=== PATIENT | female | born 1940 | race Hispanic/Latino ===

== ENCOUNTER 2016-10-30 13:02 | Inpatient (IN) | payer MEDICARE, MEDICAID ==
[2016-07-24 13:43] VITALS: BMI 32.5
[2016-10-31] MEDS ORDERED: Albuterol 0.083% Inhal Sol (2.5 mg/3 mL) UD IH PRN (00:22)
--- NOTE | 2016-10-31 00:31 | CP.PCM.HP ---
<Paulo No - Last Filed: 10/31/16 02:08> History of Present Illness - History of Present Illness History of Present Illness: 76 y/o F with PMH of HTN, IDDM, COPD, CHF, HLD, and CAD with recent stent placement 6 months ago and hx of CABG presents to ED from longterm for 1 day history of severe headache accompanied by nausea and vomiting. Pt states she has had a severe left sided headache for the past day. Pain in head does not radiate and she does not complain of any acute visual changes. Pt received tylenol for headache, but states it did not help. Pt was very restless throughout interview and was not able to answer all questions, as she was more concerned about her frequent urination. Much of prior history provided is from previous notes. Pt denies any recent illnesses or sick contacts. Pt denies CP, SOB, N/V/D, fevers, chills. PMH: HTN, IDDM, COPD, CHF, and CAD with recent stent placement Surgical Hx: Cardiac stent placement, Lumbar fusion, Hysterectomy, right toe amputation Family Hx: DM, [place] Social Hx: Former smoker, quit 15 years ago. Denies alcohol or illicit drug use. Allergies: Shellfish Medications: See MAR Present on Admission - Present on Admission Any Indicators Present on Admission: No Review of Systems - Constitutional Constitutional: Fatigue, Weakness. absent: Fever - EENT Eyes: absent: Blurred Vision, Change in Vision Nose/Mouth/Throat: absent: Nasal Congestion, Nasal Discharge - Cardiovascular Cardiovascular: absent: Chest Pain, Irregular Heart Rhythm - Respiratory Respiratory: absent: Cough, Dyspnea - Gastrointestinal Gastrointestinal: absent: Abdominal Pain, Diarrhea, Vomiting - Genitourinary Genitourinary: Urinary Incontinence, Urinary Frequency. absent: Dysuria - Integumentary Integumentary: absent: New Lesions, Rash - Neurological Neurological: absent: Syncope, Tingling - Hematologic/Lymphatic Hematologic: absent: Easy Bleeding, Easy Bruising Past Patient History - Infectious Disease Hx of Infectious Diseases: None - Past Medical History & Family History Past Medical History?: Yes - Past Social History Smoking Status: Former Smoker - CARDIAC Hx Cardiac Disorders: Yes Hx Congestive Heart Failure: Yes Hx Hypercholesterolemia: Yes Hx Hypertension: Yes - PULMONARY Hx Respiratory Disorders: Yes Hx Asthma: Yes Hx Chronic Obstructive Pulmonary Disease (COPD): Yes - NEUROLOGICAL Hx Neurological Disorder: Yes Hx Dizziness: Yes - HEENT Hx HEENT Problems: Yes (Wears glasses) Hx Deafness: Yes ([place]: has hearing aids) - RENAL Hx Chronic Kidney Disease: No - ENDOCRINE/METABOLIC Hx Endocrine Disorders: Yes Hx Diabetes Mellitus Type 2: Yes - HEMATOLOGICAL/ONCOLOGICAL Hx Blood Disorders: No - INTEGUMENTARY Hx Dermatological Problems: Yes Hx Cellulitis: Yes (Since June 2016) - MUSCULOSKELETAL/RHEUMATOLOGICAL Hx Musculoskeletal Disorders: Yes Hx Arthritis: Yes Hx Falls: Yes Hx Fractures: Yes (Right arm fx) Hx Unsteady Gait: Yes (walker) - GASTROINTESTINAL Hx Gastrointestinal Disorders: No - GENITOURINARY/GYNECOLOGICAL Hx Genitourinary Disorders: No - PSYCHIATRIC Hx Psychophysiologic Disorder: No - SURGICAL HISTORY Hx Surgeries: Yes Hx Cholecystectomy: Yes () Hx Coronary Stent: Yes Hx Hysterectomy: Yes Hx Open Heart Surgery: Yes (2008) - ANESTHESIA Hx Anesthesia: Yes Hx Anesthesia Reactions: No Hx Malignant Hyperthermia: No Meds Allergies/Adverse Reactions: Allergies Allergy/AdvReac Type Severity Reaction Status Date / Time shellfish derived Allergy SHORTNESS Verified 07/24/16 20:48 OF BREATH Physical Exam - Constitutional Appears: Non-toxic, No Acute Distress - Head Exam Head Exam: ATRAUMATIC, NORMAL INSPECTION, NORMOCEPHALIC Additional comments: No pain on palpation of left side. Left-sided neck musculature hypertonic. - Eye Exam Eye Exam: EOMI, Normal appearance - ENT Exam ENT Exam: Mucous Membranes Dry, Normal Exam - Neck Exam Neck exam: Positive for: Normal Inspection. Negative for: Lymphadenopathy - Respiratory Exam Respiratory Exam: Clear to Auscultation Bilateral, NORMAL BREATHING PATTERN. absent: Rales, Rhonchi, Wheezes - Cardiovascular Exam Cardiovascular Exam: RRR, +S1, +S2 - GI/Abdominal Exam GI & Abdominal Exam: Normal Bowel Sounds, Soft. absent: Tenderness - Extremities Exam Extremities exam: Positive for: normal inspection, pedal edema (+1 edema b/l). Negative for: calf tenderness - Neurological Exam Neurological exam: Alert, CN II-XII Intact, Oriented x3 - Psychiatric Exam Psychiatric exam: Normal Affect, Normal Mood - Skin Skin Exam: Intact, Warm Additional comments: Chronic venous stasis changes in lower extremities b/l Assessment & Plan - Assessment and Plan (Free Text) Plan: 76 y/o F with PMH of HTN, IDDM, COPD, CHF, HLD, and CAD with recent stent placement 6 months ago and hx of CABG presents with severe headache along with nausea and vomiting for 1 day. Pt also was found to have a UTI on UA. Pt will be started on antibiotics and cultures will be followed. Head CT shows no acute findings. Pt will be admitted to telemetry. 1. Severe Headache Neurology consult, Dr. Richie Hurtado Tylenol prn for headache No neurological deficits 2. UTI Rocephin Follow urine culture 3. HTN and hx of CAD with stents and CABG Continue home coreg Add lisnopril 4. IDDM ISS HgA1c 5. COPD Continue home inhalers, spiriva and albuterol 6. HLD Continue atorvastatin 7. PPX Protonix Heparin Seen, reviewed, and discussed with attending Oneal PGY-1 <William Cox - Last Filed: 10/31/16 02:16> Results - Vital Signs Recent Vital Signs: Last Vital Signs Temp 98.1 F 10/31/16 00:01 Pulse 94 H 10/31/16 01:27 Resp 18 10/31/16 01:27 BP 107/68 10/31/16 00:01 Pulse Ox 94 L 10/31/16 00:01 - Labs Labs: Laboratory Results - last 24 hr 10/30/16 20:02 Urine Color Yellow Urine Appearance Cloudy Urine pH 7.0 Ur Specific [place] 1.020 Urine Protein >=300 H Urine Glucose (UA) Negative Urine Ketones Negative Urine Blood Large H Urine Nitrate Negative Urine Bilirubin Negative Urine Urobilinogen 0.2 Ur Leukocyte Esterase Small H Urine RBC 2 - 5 Urine WBC 5 - 10 Ur Epithelial Cells 0 - 2 Urine Bacteria Many Attending/Attestation - Attestation I have personally seen and examined this patient.: Yes I have fully participated in the care of the patient.: Yes I have reviewed all pertinent clinical information: Yes Notes (Text): 10/31/16 02:16 Agree with history , physical examination, assessment and plan. Patient was seen when she was in the ER bed # 14.
[2016-10-31 01:29] LABS: URINE APPEARANCE CLOUDY (CLEAR); URINE BILIRUBIN NEGATIVE (NEGATIVE); URINE COLOR YELLOW (YELLOW); URINE GLUCOSE (UA) NEGATIVE (NEGATIVE); URINE KETONE NEGATIVE (NEGATIVE)
[2016-10-31 01:30] LABS: URINE BLOOD LARGE (NEGATIVE); URINE PROTEIN >=300 mg/dL (<30 mg/dL); URINE UROBILINOGEN 0.2 E.U./dL (<1 E.U./dL)
[2016-10-31 01:31] LABS: URINE LEUKOCYTE ESTERASE SMALL Leu/uL (NEGATIVE)
[2016-10-31 01:32] LABS: URINE BACTERIA MANY (NEG); URINE EPITHELIAL CELLS 0 - 2 /hpf (0-5)
[2016-10-31] MEDS ORDERED: Sodium Chloride 0.9% 1,000 ML IV SCH (04:30)
[2016-10-31 07:11] LABS: HEMATOCRIT 34.8 % (36.0-48.0); MEAN CELL VOLUME 87.4 fL (80.0-105.0); MEAN CORPUSCULAR HEMOGLOBIN 28.4 pg (25.0-35.0); MEAN CORPUSCULAR HGB CONC 32.5 g/dl (31.0-37.0); MEAN PLATELET VOLUME 10.9 fl (7.0-11.0); RED CELL DISTRIBUTION WIDTH 16.5 % (11.5-14.5)
[2016-10-31 07:21] LABS: ALKALINE PHOSPHATASE 135 U/L (38-133); ALT/SGPT 46 U/L (7-56); AST/SGOT 27 U/L (15-39); BILIRUBIN,TOTAL 0.4 mg/dL (0.2-1.3); BLOOD UREA NITROGEN 23 mg/dL (7-21); CALCIUM 8.2 mg/dL (8.4-10.5); CARBON DIOXIDE 27 mmol/L (21-33); CHLORIDE 99 mmol/L (98-107); GFR AFRICAN-AMERICAN > 60; GLUCOSE,RANDOM 264 mg/dL (70-110); MAGNESIUM 2.2 mg/dL (1.7-2.2); PHOSPHOROUS 4.3 mg/dL (2.5-4.5); POTASSIUM 3.9 mmol/L (3.6-5.0); SODIUM 134 mmol/L (132-148); TOTAL PROTEIN 5.6 g/dL (5.8-8.3)
[2016-10-31 07:29] LABS: TROPONIN I 0.04 ng/mL
[2016-10-31] MEDS ORDERED: Arformoterol 15 mcg/2 ml Inh Sol IH SCH (08:00)
[2016-10-31] MEDS ORDERED: Arformoterol 15 mcg/2 ml Inh Sol IH ONE (08:03)
[2016-10-31] MEDS ORDERED: Budesonide 0.5 mg/2 ml Inhal Susp UD ONE (08:03)
[2016-10-31] MEDS: Budesonide 0.5 mg/2 ml Inhal Susp UD IH SCH ×2 (08:03→19:44)
[2016-10-31] MEDS: Arformoterol 15 mcg/2 ml Inh Sol IH SCH ×2 (08:03→19:44)
[2016-10-31] MEDS: Insulin Reg-LOW-Coverage SC SCH ×4 (09:00→22:07)
[2016-10-31] MEDS: Pantoprazole 40 mg EC Tab PO SCH (09:01)
--- NOTE | 2016-10-31 09:20 | CT ---
PROCEDURE: CT HEAD WITHOUT CONTRAST. HISTORY: COMPARISON: None available. TECHNIQUE: Axial computed tomography images were obtained through the head/brain without intravenous contrast. Radiation dose: Total exam DLP = mGy-cm. This CT exam was performed using one or more of the following dose reduction techniques: Automated exposure control, adjustment of the mA and/or kV according to patient size, and/or use of iterative reconstruction technique. FINDINGS: HEMORRHAGE: No intracranial hemorrhage. BRAIN: Moderate to significant diffuse/ confluent chronic periventricular white matter ischemic changes seen extending peripherally into the deep and subcortical white matter both cerebral hemispheres. There also appears be extension of these changes into the white matter tracts of both basal nuclei. Moderate central volume loss. VENTRICLES: Ventricles are enlarged of non ex vacuo basis. No evidence of obstructive hydrocephalus. CALVARIUM: There are no acute calvarial fracture seen. PARANASAL SINUSES: Unremarkable as visualized. No significant inflammatory changes. MASTOID AIR CELLS: Unremarkable as visualized. No inflammatory changes. OTHER FINDINGS: Bilateral cataract surgery. IMPRESSION: Moderate to significant chronic white matter ischemic changes with apparent extension into the white matter tracts of both basal nuclei. Moderate volume loss.
[2016-10-31 10:37] LABS: URINE APPEARANCE CLOUDY (CLEAR); URINE BILIRUBIN NEGATIVE (NEGATIVE); URINE BLOOD LARGE (NEGATIVE); URINE COLOR YELLOW (YELLOW); URINE GLUCOSE (UA) NEGATIVE (NEGATIVE); URINE KETONE NEGATIVE (NEGATIVE); URINE LEUKOCYTE ESTERASE SMALL Leu/uL (NEGATIVE); URINE PROTEIN >=300 mg/dL (<30 mg/dL); URINE UROBILINOGEN 0.2 E.U./dL (<1 E.U./dL)
[2016-10-31 10:38] LABS: URINE BACTERIA MANY (NEG); URINE EPITHELIAL CELLS 0 - 2 /hpf (0-5)
--- NOTE | 2016-10-31 10:53 | CARD ---
APPROVED REPORT EKG Measurement Heart [id number] <Conclusion> Normal sinus rhythm Incomplete right bundle branch block Nonspecific ST abnormality Prolonged QT Abnormal ECG
[2016-10-31] MEDS: cefTRIAXone 1 gm 1 GM/100 ML BAG IVPB SCH (10:54)
[2016-10-31] MEDS: Tiotropium 18 mcg Cap For Inhalation IH SCH (10:56)
[2016-10-31] MEDS ORDERED: Vancomycin 1gm in NS 250ml 1 GM/250 ML BAG IVPB STA (10:57)
--- NOTE | 2016-10-31 11:05 | RAD ---
HISTORY: Headache and dizziness COMPARISON: 08/25/2016 TECHNIQUE: Chest PA and lateral FINDINGS: LUNGS: No active pulmonary disease. PLEURA: No significant pleural effusion identified. No pneumothorax apparent. CARDIOVASCULAR: Normal. OSSEOUS STRUCTURES: Sternal wires VISUALIZED UPPER ABDOMEN: Normal. OTHER FINDINGS: None. IMPRESSION: No active disease.
--- NOTE | 2016-10-31 11:10 | CT ---
PROCEDURE: CT Abdomen and Pelvis with contrast HISTORY: Vomiting COMPARISON: None. TECHNIQUE: Contrast dose: 100 cc of Omni 350 Radiation dose: Total exam DLP = 949 mGy-cm. This CT exam was performed using one or more of the following dose reduction techniques: Automated exposure control, adjustment of the mA and/or kV according to patient size, and/or use of iterative reconstruction technique. FINDINGS: LOWER THORAX: There is a large amount of fluid and food debris in the stomach and in a dilated distal esophagus. LIVER: Unremarkable. No gross lesion or ductal dilatation. GALLBLADDER AND BILE DUCTS: Gallbladder removed. Common bile duct is mildly dilated measuring 8 mm. PANCREAS: There is atrophy of the body and tail of the pancreas. SPLEEN: Unremarkable. ADRENALS: The adrenal glands have a thickened enlarged appearance consistent with hyperplasia. KIDNEYS AND URETERS: Unremarkable. No hydronephrosis. No solid mass. VASCULATURE: Unremarkable. No aortic aneurysm. BOWEL: Unremarkable. No obstruction. No gross mural thickening. APPENDIX: Normal appendix. PERITONEUM: Unremarkable. No free fluid. No free air. LYMPH NODES: Unremarkable. No enlarged lymph nodes. BLADDER: Unremarkable. REPRODUCTIVE: Unremarkable. BONES: No acute fracture. OTHER FINDINGS: None. IMPRESSION: Fluid and food debris in a moderately dilated stomach and distal esophagus. The study is otherwise unremarkable
[2016-10-31 13:01] LABS: HEMATOCRIT 36.4 % (36.0-48.0); MEAN CELL VOLUME 87.9 fL (80.0-105.0); MEAN CORPUSCULAR HGB CONC 31.9 g/dl (31.0-37.0); MEAN PLATELET VOLUME 10.6 fl (7.0-11.0); RED CELL DISTRIBUTION WIDTH 16.8 % (11.5-14.5); WHITE BLOOD COUNT 7.2 10^3/ul (4.5-11.0)
--- NOTE | 2016-10-31 13:10 | RAD ---
HISTORY: r/o chf COMPARISON: 10/30/2016 FINDINGS: LUNGS: No active pulmonary disease. PLEURA: No significant pleural effusion identified, no pneumothorax apparent. CARDIOVASCULAR: Mild cardiomegaly mild vascular congestion. OSSEOUS STRUCTURES: Sternal wires VISUALIZED UPPER ABDOMEN: Normal. OTHER FINDINGS: None. IMPRESSION: Mild cardiomegaly and mild vascular congestion
[2016-10-31 16:39] LABS: ALKALINE PHOSPHATASE 138 U/L (38-133); ALT/SGPT 49 U/L (7-56); AST/SGOT 42 U/L (15-39); BILIRUBIN,TOTAL 0.4 mg/dL (0.2-1.3); BLOOD UREA NITROGEN 27 mg/dL (7-21); CALCIUM 8.6 mg/dL (8.4-10.5); CARBON DIOXIDE 30 mmol/L (21-33); CHLORIDE 99 mmol/L (98-107); GFR AFRICAN-AMERICAN > 60; GLUCOSE,RANDOM 229 mg/dL (70-110); LIPASE 71 U/L (23-300); MAGNESIUM 2.1 mg/dL (1.7-2.2); PHOSPHOROUS 4.1 mg/dL (2.5-4.5); POTASSIUM 3.6 mmol/L (3.6-5.0); SODIUM 136 mmol/L (132-148); TOTAL PROTEIN 6.2 g/dL (5.8-8.3); TROPONIN I 0.05 ng/mL
--- NOTE | 2016-10-31 19:59 | CON ---
DATE: 10/31/2016 CHIEF COMPLAINT: Left-sided headache. HISTORY OF PRESENT ILLNESS: This is a 76-year-old woman with past medical history of hypertension, i nsulin-dependent diabetes mellitus, COPD, CHF, hyperlipidemia, coronary artery disease, status post s tent 6 months ago and history of CABG, presented to ED with a 1 day history of severe headache accomp anied with nausea and vomiting. She was found to have a drop in systolic and diastolic blood pressur es with initial 190/58, there have been transient drops, which can cause pressure type headache and p oor perfusion to the brain. She has an elevated A1c as well, elevated hyperglycemic accelerations, A 1c is 9. She is currently following commands, not in any acute distress. PAST MEDICAL HISTORY: History of hypertension, insulin-dependent diabetes mellitus, asthma, COPD, CH F, coronary artery disease, recent stent. SURGICAL HISTORY: Cardiac stent, lumbar fusion, hysterectomy, right toe amputation. FAMILY HISTORY: Diabetes, [place]. SOCIAL HISTORY: Former smoker, quit 15 years ago. Denies any illicit drug use or ETOH abuse. ALLERGIES: SHELLFISH. MEDICATIONS: Reviewed by nurse reconciliation sheet. PHYSICAL EXAMINATION: VITAL SIGNS: Temperature 98.7, pulse rate 85, blood pressure 105/60, respiratory rate 20. GENERAL: The patient is sitting up in bed in no acute distress. HEENT: Atraumatic, normocephalic. PERRLA. Extraocular movements intact. NECK: Supple, no JVD, no adenopathy noted. LUNGS: Clear to auscultation. No adventitious sounds. HEART: S1, S2, normal rate and rhythm. No murmurs, rubs, or gallops. ABDOMEN: Soft, nontender, nondistended. Bowel sounds present. EXTREMITIES: No clubbing, no cyanosis. Peripheral pulses 2+ bilaterally. Has pedal edema 1+ bilate rally. NEUROLOGIC: The patient is alert, oriented to person, place, month and year. Speech is fluent, with out any errors. Poor attention span, poor thought process. Cranial nerves II through XII are intact . MOTOR: Moves all extremities equally. Toes are downgoing bilaterally. SENSORY: Decreased light touch, pinprick up to calves decreased bilaterally, decreased vibration of the toes. DTRs are 1+ at the ankles. COORDINATION: [id number] intact. GAIT: Deferred for now. LABORATORY DATA: A1c is 9. Sodium is 134, potassium 3.9, chloride 99, carbon dioxide 27, BUN of 23, creatinine 0.9, random glucose 264. ASSESSMENT AND PLAN: This is a 76-year-old woman with past medical history of hypertension, insulin- dependent diabetes mellitus, chronic obstructive pulmonary disease, congestive heart failure, hyperli pidemia, coronary artery disease, recent stent placement and coronary artery bypass graft, who presen camila with severe headache along with nausea and vomiting for 1 day and found to have a urinary tract i nfection on her urinalysis. CT head showed no acute intracranial abnormalities. She had hyperglycem ics accelerations, with elevated A1c of 9, as well as transient drop in her blood pressure causing ce rebral hypoperfusion, which all can be a combination causing her headache. AT THIS TIME, RECOMMEND: 1. Fioricet 1 tab p.o. q. 4 hours at acute onset of headache and possible gabapentin 300 mg p.o. at bedtime for headache relief as well as neuropathic pain. 2. At this time keep her blood sugars to between 140 to 180. Needs a better diabetic diet and diabe tic medication adjustment. 3. Keep her systolic blood pressure elevated at least above systolic 120 to 130 and continue her migel e inhalers of Spiriva, albuterol for underlying chronic obstructive pulmonary disease. Continue current present management. No further neurological workup needed at this time, we will sig n off. Neto Hurtado MD cc: [id number] TT: 10/31/2016 19:59:03 Confirmation # [id number] Dictation # [id number]
--- NOTE | 2016-10-31 20:09 | CP.PCM.CON ---
History of Present Illness - History of Present Illness History of Present Illness: 76 year old female with PMH of CAD S/P PCI and S/P CABG, chronic CHF, COPD, DM, HTN, dyslipidemia, S/P right toe amputation, S/P hysterectomy came in to [facility] because of headache with associated nausea. The patient also is complaining of some urinary frequency but has now resolved and she does not complain of dysuria. She denies fever or chills, no abdominal pain, no diarrhea, no chest pain, no SOB, no cough or colds. She is not complaining of headache currently. She was noted to have bilateral lower extremity swelling and Infectious Diseases consult is requested to further evaluate and manage. Review of Systems - Review of Systems All systems: reviewed and no additional remarkable complaints except (as per HPI ) Past Patient History - Infectious Disease Hx of Infectious Diseases: None - Past Medical History & Family History Past Medical History?: Yes - Past Social History Smoking Status: Former Smoker - CARDIAC Hx Cardiac Disorders: Yes Hx Congestive Heart Failure: Yes Hx Hypercholesterolemia: Yes Hx Hypertension: Yes - PULMONARY Hx Respiratory Disorders: Yes Hx Asthma: Yes Hx Chronic Obstructive Pulmonary Disease (COPD): Yes - NEUROLOGICAL Hx Neurological Disorder: Yes Hx Dizziness: Yes - HEENT Hx HEENT Problems: Yes (Wears glasses) Hx Deafness: Yes [place]: has hearing aids) - RENAL Hx Chronic Kidney Disease: No - ENDOCRINE/METABOLIC Hx Endocrine Disorders: Yes Hx Diabetes Mellitus Type 2: Yes - HEMATOLOGICAL/ONCOLOGICAL Hx Blood Disorders: No - INTEGUMENTARY Hx Dermatological Problems: Yes Hx Cellulitis: Yes (Since mid-June 2016) - MUSCULOSKELETAL/RHEUMATOLOGICAL Hx Musculoskeletal Disorders: Yes Hx Arthritis: Yes Hx Falls: Yes Hx Fractures: Yes (Right arm fx) Hx Unsteady Gait: Yes (walker) - GASTROINTESTINAL Hx Gastrointestinal Disorders: No - GENITOURINARY/GYNECOLOGICAL Hx Genitourinary Disorders: No - PSYCHIATRIC Hx Psychophysiologic Disorder: No - SURGICAL HISTORY Hx Surgeries: Yes Hx Cholecystectomy: Yes () Hx Coronary Stent: Yes Hx Hysterectomy: Yes Hx Open Heart Surgery: Yes (2008) - ANESTHESIA Hx Anesthesia: Yes Hx Anesthesia Reactions: No Hx Malignant Hyperthermia: No Meds Allergies/Adverse Reactions: Allergies Allergy/AdvReac Type Severity Reaction Status Date / Time shellfish derived Allergy SHORTNESS Verified 07/24/16 20:48 OF BREATH - Medications Medications: Current Medications Acetaminophen (Tylenol 325mg Tab) 650 mg PO Q6H PRN PRN Reason: Headache Albuterol Sulfate (Albuterol 0.083% Inhal Lizzie (2.5 Mg/3 Ml) Ud) 2.5 mg IH [id number] PRN PRN Reason: Shortness of Breath Arformoterol Tartrate (Brovana) 15 mcg IH [id number] [facility] Last Admin: 10/31/16 19:44 Dose: 15 mcg Aspirin (Aspirin Chewable) 81 mg PO DAILY [facility] Last Admin: 10/31/16 10:55 Dose: 81 mg Atorvastatin Calcium (Lipitor) 80 mg PO DIN [facility] Last Admin: 10/31/16 17:34 Dose: 80 mg Budesonide (Pulmicort Respules) 0.5 mg IH [id number] [facility] Last Admin: 10/31/16 19:44 Dose: 0.5 mg Carvedilol (Coreg) 3.125 mg PO BID [facility] Last Admin: 10/31/16 17:34 Dose: 3.125 mg Furosemide (Lasix) 20 mg PO DAILY [facility] Last Admin: 10/31/16 10:55 Dose: 20 mg Gabapentin (Neurontin) 100 mg PO TID [facility] PRN Reason: Protocol Last Admin: 10/31/16 17:34 Dose: 100 mg Heparin Sodium (Porcine) (Heparin) 5,000 units SC Q12 [facility] PRN Reason: Protocol Last Admin: 10/31/16 10:56 Dose: 5,000 units Ceftriaxone Sodium (Rocephin 1 Gram Ivpb) 1 gm in 100 mls @ 100 mls/hr IVPB DAILY [facility] PRN Reason: Protocol Last Admin: 10/31/16 10:54 Dose: 100 mls/hr Insulin Human Regular (Humulin R Low) 0 units SC ACHS [facility] PRN Reason: Protocol Last Admin: 10/31/16 17:33 Dose: 5 units Lisinopril (Zestril) 2.5 mg PO DAILY [facility] Last Admin: 10/31/16 10:56 Dose: 2.5 mg Meclizine HCl (Antivert) 12.5 mg PO Q6 PRN PRN Reason: Dizziness Ondansetron HCl (Zofran Inj) 4 mg IVP Q4H PRN PRN Reason: Nausea/Vomiting Last Admin: 10/31/16 02:14 Dose: 4 mg Pantoprazole Sodium (Protonix Ec Tab) 40 mg PO 0730 [facility] Last Admin: 10/31/16 09:01 Dose: 40 mg Tiotropium [place] (Spiriva) 18 mcg IH DAILY [facility] Last Admin: 10/31/16 10:56 Dose: 18 mcg Physical Exam - Constitutional Appears: Non-toxic, No Acute Distress - Head Exam Head Exam: NORMAL INSPECTION - ENT Exam ENT Exam: Mucous Membranes Moist - Neck Exam Neck exam: Negative for: Lymphadenopathy, Meningismus - Respiratory Exam Respiratory Exam: Decreased Breath Sounds - Cardiovascular Exam Cardiovascular Exam: +S1, +S2 - GI/Abdominal Exam GI & Abdominal Exam: Soft. absent: Tenderness - Extremities Exam Additional comments: lower extremities with symmetrical erythema, no tenderness noted Results - Vital Signs Recent Vital Signs: Last Vital Signs Temp 98.6 F 10/31/16 17:50 Pulse 81 10/31/16 18:00 Resp 20 10/31/16 17:50 BP 115/65 10/31/16 17:50 Pulse Ox 95 10/31/16 09:00 - Labs Result Diagrams: 10/31/16 06:30 10/31/16 06:30 Assessment & Plan - Assessment and Plan (Free Text) Plan: Assessment Probable venous stasis with lower extremity edema from chronic CHF R/O urinary tract infection CAD S/P PCI and S/P CABG chronic CHF COPD DM HTN dyslipidemia S/P right toe amputation S/P hysterectomy Plan Patient has been started on Rocephin; follow up urine cx will monitor clinically
--- NOTE | 2016-10-31 23:52 | CP.PCM.PN ---
<Wang Green - Last Filed: 10/31/16 23:45> Subjective - Date & Time of Evaluation Date of Evaluation: 10/31/16 Time of Evaluation: 07:30 - Subjective Subjective: 76 y/o F with PMH of HTN, IDDM, COPD, CHF, HLD, and CAD with recent stent placement 6 months ago and hx of CABG presents to ED from skilled nursing for 1 day history of severe headache accompanied by nausea and vomiting. Later in the day, pt. stated she was feeling "OK", although her speech was pressured and she seemed anxious. Initially she said she did not know where she was and then was able to answer correctly. She stated that she lives with her son and goes to [employer] during the day. Pt denies any recent illnesses or sick contacts. Pt denies CP, SOB, N/V/D, fevers, chills. Objective - Vital Signs/Intake and Output Vital Signs (last 24 hours): Temp Pulse Resp BP Pulse Ox 98.6 F 81 20 115/65 95 10/31/16 17:50 10/31/16 18:00 10/31/16 17:50 10/31/16 17:50 10/31/16 09:00 - Medications Medications: Current Medications Acetaminophen (Tylenol 325mg Tab) 650 mg PO Q6H PRN PRN Reason: Headache Last Admin: 10/31/16 19:54 Dose: 650 mg Albuterol Sulfate (Albuterol 0.083% Inhal Lizzie (2.5 Mg/3 Ml) Ud) 2.5 mg IH [id number] PRN PRN Reason: Shortness of Breath Arformoterol Tartrate (Brovana) 15 mcg IH [id number] [facility] Last Admin: 10/31/16 19:44 Dose: 15 mcg Aspirin (Aspirin Chewable) 81 mg PO DAILY [facility] Last Admin: 10/31/16 10:55 Dose: 81 mg Atorvastatin Calcium (Lipitor) 80 mg PO DIN [facility] Last Admin: 10/31/16 17:34 Dose: 80 mg Budesonide (Pulmicort Respules) 0.5 mg IH [id number] [facility] Last Admin: 10/31/16 19:44 Dose: 0.5 mg Carvedilol (Coreg) 3.125 mg PO BID [facility] Last Admin: 10/31/16 17:34 Dose: 3.125 mg Furosemide (Lasix) 20 mg PO DAILY [facility] Last Admin: 10/31/16 10:55 Dose: 20 mg Gabapentin (Neurontin) 100 mg PO TID [facility] PRN Reason: Protocol Last Admin: 10/31/16 17:34 Dose: 100 mg Heparin Sodium (Porcine) (Heparin) 5,000 units SC Q12 [facility] PRN Reason: Protocol Last Admin: 10/31/16 21:32 Dose: 5,000 units Ceftriaxone Sodium (Rocephin 1 Gram Ivpb) 1 gm in 100 mls @ 100 mls/hr IVPB DAILY [facility] PRN Reason: Protocol Last Admin: 10/31/16 10:54 Dose: 100 mls/hr Insulin Human Regular (Humulin R Low) 0 units SC ACHS [facility] PRN Reason: Protocol Last Admin: 10/31/16 22:07 Dose: 4 units Lisinopril (Zestril) 2.5 mg PO DAILY [facility] Last Admin: 10/31/16 10:56 Dose: 2.5 mg Meclizine HCl (Antivert) 12.5 mg PO Q6 PRN PRN Reason: Dizziness Ondansetron HCl (Zofran Inj) 4 mg IVP Q4H PRN PRN Reason: Nausea/Vomiting Last Admin: 10/31/16 02:14 Dose: 4 mg Pantoprazole Sodium (Protonix Ec Tab) 40 mg PO 0730 [facility] Last Admin: 10/31/16 09:01 Dose: 40 mg Tiotropium Morven (Spiriva) 18 mcg IH DAILY [facility] Last Admin: 10/31/16 10:56 Dose: 18 mcg - Constitutional Appears: No Acute Distress, Agitated - Head Exam Head Exam: ATRAUMATIC - Eye Exam Eye Exam: EOMI - ENT Exam ENT Exam: Mucous Membranes Moist - Neck Exam Neck Exam: absent: Lymphadenopathy - Respiratory Exam Respiratory Exam: Clear to Ausculation Bilateral, NORMAL BREATHING PATTERN - Cardiovascular Exam Cardiovascular Exam: REGULAR RHYTHM, RRR, +S1, +S2. absent: JVD - GI/Abdominal Exam GI & Abdominal Exam: Soft, Normal Bowel Sounds. absent: Tenderness - Extremities Exam Extremities Exam: Joint Swelling, Tenderness Additional comments: BL swelling and erythema of her anterior legs - Back Exam Back Exam: absent: CVA tenderness (L), CVA tenderness (R) - Neurological Exam Neurological Exam: Awake, Oriented x3 - Psychiatric Exam Psychiatric exam: Anxious - Skin Skin Exam: Dry, Intact, Normal Color, Rash (BL lower anterior legs), Warm Assessment and Plan - Assessment and Plan (Free Text) Assessment: 76 y/o F presents with severe headache along with nausea and vomiting for 1 day. Pt also was found to have a UTI on UA. Plan: Severe Headache -Neurology consult, Dr. Richie Hurtado - help appreciated -Firoicet 1 tab po q4 -Gabapentin 300mg po TID -Tylenol prn for headache -No neurological deficits -Orthostatics ordered -EKG NSR at 82 with Incomplete RBBB, nonspecific ST abnormality, and prolonged QT -CXR No Active Disease -CXR repeat Mild cardiomegaly and mild vascular congestion -CT Head - Mod to sig chronic white matter ischemic changes with apparent extension into the white matter tracts of both basal nuclei - Mod vol loss Nausea/Vomiting -CT Abd/Pelvis IV contrast -Fluid and food debris in a moderately dilated stomach and distal esophagus -Clear Liq Diet -GI Consult - Dr. Nieto - help appreciated UTI -Rocephin -urine culture - received -Bello Catheter inserted -cloudy yellow urine HTN and hx of CAD with stents and CABG -Continue home coreg -Add lisnopril -Continue Lasix IDDM -ISS LOW -HgA1c COPD -Continue home inhalers, spiriva and albuterol -Budesonide .5mg IH q12 -Brovana 15mcg IH Q12 HLD -Continue atorvastatin 80mg PO DIN Cellulitis BL LE -ID consult - Dr. Chin - help appreciated -Probable venous stasis with lower extremity edema from chronic CHF -Patient has been started on Rocephin; follow up urine cx PPX Protonix Heparin Zofran PT/OT Eval <Sherine River - Last Filed: 11/01/16 17:27> Objective - Vital Signs/Intake and Output Vital Signs (last 24 hours): Temp Pulse Resp BP Pulse Ox 97.5 F L 63 19 115/65 96 11/01/16 12:00 11/01/16 12:00 11/01/16 12:00 11/01/16 12:00 11/01/16 09:00 Intake and Output: 11/01/16 11/01/16 06:59 18:59 Intake Total 2009 Output Total 2499 Balance -490 - Medications Medications: Current Medications Acetaminophen (Tylenol 325mg Tab) 650 mg PO Q6H PRN PRN Reason: Headache Last Admin: 11/01/16 08:03 Dose: 650 mg Albuterol Sulfate (Albuterol 0.083% Inhal Lizzie (2.5 Mg/3 Ml) Ud) 2.5 mg IH [id number] PRN PRN Reason: Shortness of Breath Alprazolam (Xanax) 0.25 mg PO Q8 PRN; Protocol PRN Reason: Anxiety Stop: 11/08/16 14:01 Last Admin: 11/01/16 11:02 Dose: 0.25 mg Arformoterol Tartrate (Brovana) 15 mcg IH [id number] [facility] Last Admin: 11/01/16 07:33 Dose: 15 mcg Aspirin (Ecotrin) 325 mg PO DAILY [facility] Last Admin: 11/01/16 10:49 Dose: 325 mg Atorvastatin Calcium (Lipitor) 80 mg PO DIN [facility] Last Admin: 10/31/16 17:34 Dose: 80 mg Budesonide (Pulmicort Respules) 0.5 mg IH [id number] [facility] Last Admin: 11/01/16 07:33 Dose: 0.5 mg Carvedilol (Coreg) 3.125 mg PO BID [facility] Last Admin: 11/01/16 10:35 Dose: 3.125 mg Ferrous Gluconate (Fergon) 324 mg PO DAILY [facility] Last Admin: 11/01/16 10:49 Dose: 324 mg Furosemide (Lasix) 20 mg PO DAILY [facility] Last Admin: 11/01/16 10:34 Dose: 20 mg Gabapentin (Neurontin) 100 mg PO TID [facility] PRN Reason: Protocol Last Admin: 11/01/16 14:44 Dose: 100 mg Heparin Sodium (Porcine) (Heparin) 5,000 units SC Q12 [facility] PRN Reason: Protocol Last Admin: 11/01/16 10:33 Dose: 5,000 units Ceftriaxone Sodium (Rocephin 1 Gram Ivpb) 1 gm in 100 mls @ 100 mls/hr IVPB DAILY [facility] PRN Reason: Protocol Last Admin: 11/01/16 10:35 Dose: 100 mls/hr Insulin Detemir (Levemir) 10 unit SC BID [facility] Insulin Human Regular (Humulin R Med) 0 units SC ACHS [facility] PRN Reason: Protocol Last Admin: 11/01/16 12:13 Dose: 7 units Lisinopril (Zestril) 2.5 mg PO DAILY [facility] Last Admin: 11/01/16 10:34 Dose: 2.5 mg Meclizine HCl (Antivert) 12.5 mg PO Q6 PRN PRN Reason: Dizziness Last Admin: 11/01/16 10:50 Dose: 12.5 mg Metoclopramide HCl (Reglan) 10 mg IVP ACHS [facility] Ondansetron HCl (Zofran Inj) 4 mg IVP Q4H PRN PRN Reason: Nausea/Vomiting Last Admin: 10/31/16 02:14 Dose: 4 mg Pantoprazole Sodium (Protonix Ec Tab) 40 mg PO 0730 [facility] Last Admin: 11/01/16 08:03 Dose: 40 mg Tiotropium Morven (Spiriva) 18 mcg IH DAILY [facility] Last Admin: 11/01/16 10:33 Dose: 18 mcg - Labs Labs: 11/01/16 07:49 11/01/16 07:49 Attending/Attestation - Attestation I have personally seen and examined this patient.: Yes I have fully participated in the care of the patient.: Yes I have reviewed all pertinent clinical information, including history, physical exam and plan: Yes Notes (Text): 11/01/16 17:22 attending note; Patient seen and examined with resident in bed 261. Patient is alert, awake and oriented. Patient gets very emotional and cries during interview. Not in any acute distress. patient is a 76 y/o Female with PMH of HTN, IDDM, COPD, CHF, HLD, and CAD and hx of CABG presents to ED from skilled nursing for 1 day history of severe headache accompanied by nausea and vomiting. CT head was negative for any acute infarct. Chronic changes noted. Neurology evaluation requested. nausea or vomiting; resolved. CT abdomen showed mildly dilated stomach with debries. GI evaluation requested. Continue clear liquid diet. Visually impaired/hearing-impaired/diabetic neuropathy. Hypertension; continue medication. Diabetes; continue insulin. Physical therapy evaluation requested. case discussed with patient and son Clarence in detail. Upon discharge the patient will follow up with DR. ozzie TOLENTINO. Follow-up with cardiology DR. Livan Sanders.
[2016-11-01] MEDS: Arformoterol 15 mcg/2 ml Inh Sol IH SCH ×2 (07:33→19:24)
[2016-11-01] MEDS: Budesonide 0.5 mg/2 ml Inhal Susp UD IH SCH ×2 (07:33→19:24)
[2016-11-01 07:52] LABS: ADD MANUAL DIFF? NO
[2016-11-01 07:57] LABS: BASO # 0.04 K/mm3 (0.0-2.0); BASO % 0.6 % (0.0-3.0); EOS # 0.1 (0.0-0.7); EOS % 1.6 % (1.5-5.0); GRAN # 4.83 (1.4-6.5); GRAN % 68.8 % (50.0-68.0); HEMATOCRIT 35.3 % (36.0-48.0); LYMPH # 1.4 (1.2-3.4); LYMPH % 20.4 % (22.0-35.0); MEAN CELL VOLUME 87.2 fL (80.0-105.0); MEAN CORPUSCULAR HEMOGLOBIN 28.4 pg (25.0-35.0); MEAN CORPUSCULAR HGB CONC 32.6 g/dl (31.0-37.0); MONO # 0.6 (0.1-0.6); MONO % 8.6 % (1.0-6.0); PLATELET COUNT 338 10^3/uL (120.0-450.0); RED CELL DISTRIBUTION WIDTH 16.2 % (11.5-14.5)
[2016-11-01] MEDS: Pantoprazole 40 mg EC Tab PO SCH (08:03)
[2016-11-01] MEDS: Insulin Reg-MEDIUM-Coverage SC SCH ×4 (08:03→21:30)
[2016-11-01 08:27] LABS: ALKALINE PHOSPHATASE 122 U/L (38-133); ALT/SGPT 39 U/L (7-56); AST/SGOT 43 U/L (15-39); BILIRUBIN,TOTAL 0.2 mg/dL (0.2-1.3); BLOOD UREA NITROGEN 21 mg/dL (7-21); CALCIUM 8.2 mg/dL (8.4-10.5); CARBON DIOXIDE 29 mmol/L (21-33); CHLORIDE 101 mmol/L (98-107); GFR AFRICAN-AMERICAN > 60; GLUCOSE,RANDOM 237 mg/dL (70-110); POTASSIUM 3.6 mmol/L (3.6-5.0); SODIUM 134 mmol/L (132-148); TOTAL PROTEIN 5.1 g/dL (5.8-8.3)
[2016-11-01] MEDS: Tiotropium 18 mcg Cap For Inhalation IH SCH (10:33)
[2016-11-01] MEDS: cefTRIAXone 1 gm 1 GM/100 ML BAG IVPB SCH (10:35)
[2016-11-01] MEDS ORDERED: Fluticasone-Salmeterol 250-50mcg Diskus IH SCH (10:45)
[2016-11-01] MEDS: Aspirin 325 mg EC Tablets PO SCH (10:49)
--- NOTE | 2016-11-01 15:19 | CP.PCM.PN ---
<Ирина Deutsch - Last Filed: 11/01/16 17:18> Subjective - Date & Time of Evaluation Date of Evaluation: 11/01/16 Time of Evaluation: 10:00 - Subjective Subjective: PGY-1 Medicine progress note Patient seen and examined at bedside on telemetery. No acute distress. Nurse report no events overnight. Patient begain to cry stating that she is very anxious and feels that she has no control. She continues tp reports headache however it has improved since yesterday. She denies any nausea and vomiting. Pt denies any recent illnesses or sick contacts. Pt denies CP, SOB, N/V/D, fevers, chills. Objective - Vital Signs/Intake and Output Vital Signs (last 24 hours): Temp Pulse Resp BP Pulse Ox 97.5 F L 63 19 115/65 96 11/01/16 12:00 11/01/16 12:00 11/01/16 12:00 11/01/16 12:00 11/01/16 09:00 Intake and Output: 11/01/16 11/01/16 06:59 18:59 Intake Total 2009 Output Total 2500 Balance -490 - Medications Medications: Current Medications Acetaminophen (Tylenol 325mg Tab) 650 mg PO Q6H PRN PRN Reason: Headache Last Admin: 11/01/16 08:03 Dose: 650 mg Albuterol Sulfate (Albuterol 0.083% Inhal Lizzie (2.5 Mg/3 Ml) Ud) 2.5 mg IH [id number] PRN PRN Reason: Shortness of Breath Alprazolam (Xanax) 0.25 mg PO Q8 PRN; Protocol PRN Reason: Anxiety Stop: 11/08/16 14:01 Last Admin: 11/01/16 11:02 Dose: 0.25 mg Arformoterol Tartrate (Brovana) 15 mcg IH [id number] [facility] Last Admin: 11/01/16 07:33 Dose: 15 mcg Aspirin (Ecotrin) 325 mg PO DAILY [facility] Last Admin: 11/01/16 10:49 Dose: 325 mg Atorvastatin Calcium (Lipitor) 80 mg PO DIN [facility] Last Admin: 10/31/16 17:34 Dose: 80 mg Budesonide (Pulmicort Respules) 0.5 mg IH [id number] [facility] Last Admin: 11/01/16 07:33 Dose: 0.5 mg Carvedilol (Coreg) 3.125 mg PO BID [facility] Last Admin: 11/01/16 10:35 Dose: 3.125 mg Ferrous Gluconate (Fergon) 324 mg PO DAILY [facility] Last Admin: 11/01/16 10:49 Dose: 324 mg Furosemide (Lasix) 20 mg PO DAILY [facility] Last Admin: 11/01/16 10:34 Dose: 20 mg Gabapentin (Neurontin) 100 mg PO TID [facility] PRN Reason: Protocol Last Admin: 11/01/16 14:44 Dose: 100 mg Heparin Sodium (Porcine) (Heparin) 5,000 units SC Q12 [facility] PRN Reason: Protocol Last Admin: 11/01/16 10:33 Dose: 5,000 units Ceftriaxone Sodium (Rocephin 1 Gram Ivpb) 1 gm in 100 mls @ 100 mls/hr IVPB DAILY [facility] PRN Reason: Protocol Last Admin: 11/01/16 10:35 Dose: 100 mls/hr Insulin Detemir (Levemir) 10 unit SC BID [facility] Insulin Human Regular (Humulin R Med) 0 units SC ACHS [facility] PRN Reason: Protocol Last Admin: 11/01/16 12:13 Dose: 7 units Lisinopril (Zestril) 2.5 mg PO DAILY [facility] Last Admin: 11/01/16 10:34 Dose: 2.5 mg Meclizine HCl (Antivert) 12.5 mg PO Q6 PRN PRN Reason: Dizziness Last Admin: 11/01/16 10:50 Dose: 12.5 mg Metoclopramide HCl (Reglan) 10 mg IVP ACHS [facility] Ondansetron HCl (Zofran Inj) 4 mg IVP Q4H PRN PRN Reason: Nausea/Vomiting Last Admin: 10/31/16 02:14 Dose: 4 mg Pantoprazole Sodium (Protonix Ec Tab) 40 mg PO 0730 [facility] Last Admin: 11/01/16 08:03 Dose: 40 mg Tiotropium [place] (Spiriva) 18 mcg IH DAILY [facility] Last Admin: 11/01/16 10:33 Dose: 18 mcg - Labs Labs: 11/01/16 07:49 11/01/16 07:49 - Constitutional Appears: No Acute Distress - Head Exam Head Exam: ATRAUMATIC, NORMOCEPHALIC - Eye Exam Eye Exam: Normal appearance - ENT Exam ENT Exam: Mucous Membranes Moist - Respiratory Exam Respiratory Exam: Clear to Ausculation Bilateral, NORMAL BREATHING PATTERN. absent: Rales, Rhonchi, Wheezes, Respiratory Distress - Cardiovascular Exam Cardiovascular Exam: REGULAR RHYTHM. absent: Tachycardia, Murmur - GI/Abdominal Exam GI & Abdominal Exam: Soft, Normal Bowel Sounds. absent: Firm, Guarding, Rigid, Tenderness - Extremities Exam Additional comments: erythema of her anterior lower extremity bilaterally - Neurological Exam Neurological Exam: Awake, Oriented x3 - Psychiatric Exam Psychiatric exam: Anxious - Skin Skin Exam: Dry, Erythema (anterior lower extremity bilateral ), Intact, Normal Color, Warm Assessment and Plan - Assessment and Plan (Free Text) Assessment: 76 y/o F presents with severe headache along with nausea and vomiting for 1 day. Pt also was found to have a UTI on UA. Plan: 1. Severe Headache - Neurology consult, recommended continuing firocicet and gabapentin - cont Firoicet 1 tab po q4 and Gabapentin 300mg po TID - Tylenol prn for headache - No neurological deficits - Orthostatics wnl - EKG NSR at 82 with Incomplete RBBB, nonspecific ST abnormality, and prolonged QT - CXR No Active Disease - CXR repeat Mild cardiomegaly and mild vascular congestion - CT Head showed Mod to sig chronic white matter ischemic changes with apparent extension into the white matter tracts of both basal nuclei 2. Nausea/Vomiting - CT Abd/Pelvis IV contrast showed Fluid and food debris in a moderately dilated stomach and distal esophagus - tolerating clear Liq Diet - GI Consult - Dr. Nieto - help appreciated 3. anxiety - consulted psych - xanax 0.25mg prn 4. UTI - cont Rocephin - urine culture- gram negative rods - Bello Catheter inserted - cloudy yellow urine - ID following 5. HTN and hx of CAD with stents and CABG - Continue home coreg - Add lisnopril - Continue Lasix 6. IDDM - ISS LOW - started levemir - HgA1c- pending 7. COPD - Continue home inhalers, spiriva and albuterol - Budesonide .5mg IH q12 - Brovana 15mcg IH Q12 8. HLD - Continue atorvastatin 80mg PO DIN 9. Cellulitis BL LE - ID consult - Dr. Thao - Most likely venous stasis with lower extremity edema from chronic CHF - continue Rocephin; no new abx per ID PPX Protonix Heparin Zofran PT/OT Eval- recommended subacute rehab D/C telemetry <Sherine River - Last Filed: 11/01/16 17:30> Objective - Vital Signs/Intake and Output Vital Signs (last 24 hours): Temp Pulse Resp BP Pulse Ox 97.5 F L 60 19 115/63 96 11/01/16 12:00 11/01/16 17:25 11/01/16 12:00 11/01/16 17:25 11/01/16 09:00 Intake and Output: 11/01/16 11/01/16 06:59 18:59 Intake Total 2009 Output Total 2500 Balance -490 - Medications Medications: Current Medications Acetaminophen (Tylenol 325mg Tab) 650 mg PO Q6H PRN PRN Reason: Headache Last Admin: 11/01/16 08:03 Dose: 650 mg Albuterol Sulfate (Albuterol 0.083% Inhal Lizzie (2.5 Mg/3 Ml) Ud) 2.5 mg IH [id number] PRN PRN Reason: Shortness of Breath Alprazolam (Xanax) 0.25 mg PO Q8 PRN; Protocol PRN Reason: Anxiety Stop: 11/08/16 14:01 Last Admin: 11/01/16 11:02 Dose: 0.25 mg Arformoterol Tartrate (Brovana) 15 mcg IH [id number] [facility] Last Admin: 11/01/16 07:33 Dose: 15 mcg Aspirin (Ecotrin) 325 mg PO DAILY [facility] Last Admin: 11/01/16 10:49 Dose: 325 mg Atorvastatin Calcium (Lipitor) 80 mg PO DIN [facility] Last Admin: 11/01/16 17:25 Dose: 80 mg Budesonide (Pulmicort Respules) 0.5 mg IH [id number] [facility] Last Admin: 11/01/16 07:33 Dose: 0.5 mg Carvedilol (Coreg) 3.125 mg PO BID [facility] Last Admin: 11/01/16 17:25 Dose: 3.125 mg Ferrous Gluconate (Fergon) 324 mg PO DAILY [facility] Last Admin: 11/01/16 10:49 Dose: 324 mg Furosemide (Lasix) 20 mg PO DAILY [facility] Last Admin: 11/01/16 10:34 Dose: 20 mg Gabapentin (Neurontin) 100 mg PO TID [facility] PRN Reason: Protocol Last Admin: 11/01/16 17:25 Dose: 100 mg Heparin Sodium (Porcine) (Heparin) 5,000 units SC Q12 [facility] PRN Reason: Protocol Last Admin: 11/01/16 10:33 Dose: 5,000 units Ceftriaxone Sodium (Rocephin 1 Gram Ivpb) 1 gm in 100 mls @ 100 mls/hr IVPB DAILY [facility] PRN Reason: Protocol Last Admin: 11/01/16 10:35 Dose: 100 mls/hr Insulin Detemir (Levemir) 10 unit SC BID [facility] Last Admin: 11/01/16 17:24 Dose: 10 unit Insulin Human Regular (Humulin R Med) 0 units SC ACHS [facility] PRN Reason: Protocol Last Admin: 11/01/16 17:24 Dose: 7 units Lisinopril (Zestril) 2.5 mg PO DAILY [facility] Last Admin: 11/01/16 10:34 Dose: 2.5 mg Meclizine HCl (Antivert) 12.5 mg PO Q6 PRN PRN Reason: Dizziness Last Admin: 11/01/16 10:50 Dose: 12.5 mg Metoclopramide HCl (Reglan) 10 mg IVP ACHS [facility] Last Admin: 11/01/16 17:23 Dose: 10 mg Ondansetron HCl (Zofran Inj) 4 mg IVP Q4H PRN PRN Reason: Nausea/Vomiting Last Admin: 10/31/16 02:14 Dose: 4 mg Pantoprazole Sodium (Protonix Ec Tab) 40 mg PO 0730 [facility] Last Admin: 11/01/16 08:03 Dose: 40 mg Tiotropium [place] (Spiriva) 18 mcg IH DAILY [facility] Last Admin: 11/01/16 10:33 Dose: 18 mcg - Labs Labs: 11/01/16 07:49 11/01/16 07:49 Attending/Attestation - Attestation I have personally seen and examined this patient.: Yes I have fully participated in the care of the patient.: Yes I have reviewed all pertinent clinical information, including history, physical exam and plan: Yes Notes (Text): 11/01/16 17:27 attending note; Patient seen and examined with resident in bed 261. Patient is alert, awake and oriented. Patient gets very emotional and cries during interview. Not in any acute distress. patient is a 76 y/o Female with PMH of HTN, IDDM, COPD, CHF, HLD, and CAD and hx of CABG presents to ED from senior living for 1 day history of severe headache accompanied by nausea and vomiting. CT head was negative for any acute infarct. Chronic changes noted. Neurology evaluation appreciated. Continue Neurontin and Fioricet. nausea or vomiting; resolved. CT abdomen showed mildly dilated stomach with debries. GI evaluation appreciated. Possible EGD Thursday. tolerating clear liquid diet. Visually impaired/hearing-impaired/diabetic neuropathy. lower extremity redness; improving. On Rocephin. ID evaluation with DR. thao appreciated Possible UTI; has Bello catheter. Urine culture is pending. On Rocephin. Hypertension; continue medication. Diabetes; continue insulin. anxiety; started on low-dose Xanax. Psychiatric evaluation requested. Physical therapy evaluation appreciated. Subacute rehabilitation recommended. Upon discharge the patient will follow up with DR. horne PMKaren. Follow-up with cardiology DR. Livan Sanders.
[2016-11-01] MEDS: Insulin Detemir 100 units/ml Vial (Levemir) SC SCH (17:24)
--- NOTE | 2016-11-01 18:43 | CON ---
DATE: 11/01/2016 REQUESTING PHYSICIAN: Dr. River. REASON FOR CONSULTATION: I have been asked to see this 76-year-old female with multiple comorbiditie s including insulin-dependent diabetes mellitus, coronary artery disease with recent coronary artery stent placement, hypertension, chronic obstructive pulmonary disease, congestive heart failure, CABG, who comes to the hospital from the custodial with severe headaches, dizziness which she describes as room spinning and nausea and vomiting. CT scan of the abdomen and pelvis showed a stomach filled with food as well as food refluxing back into the lower esophagus. The patient has not had any furt her nausea and vomiting. She denies any abdominal pain. She denies chest pain or shortness of breat h. She does admit to continued vertigo this morning. She tolerated a clear liquid diet this morning . PAST MEDICAL HISTORY: Notable for coronary artery disease status post coronary artery stent placemen t and CABG many years ago, COPD, hypertension, type 2 diabetes mellitus, congestive heart failure. PAST SURGICAL HISTORY: Notable for hysterectomy, right toe amputation, lumbar fusion. SOCIAL HISTORY: She is a former smoker, having quit over 10 years ago. She denies alcohol use. FAMILY HISTORY: Noncontributory. REVIEW OF SYSTEMS: A 14-point review of systems is positive for headaches, vertigo, nausea and vomit ing. PHYSICAL EXAMINATION: GENERAL: Obese female lying in bed in no acute distress. VITAL SIGNS: Reveal temperature of 98.5, blood pressure 129/78, heart rate is 74. Her BMI is 35. HEENT: Reveal sclerae to be white, conjunctivae pink. NECK: Supple. CHEST: Reveals lungs to be clear. HEART: Reveals an irregular rate. ABDOMEN: Obese, soft, nontender. EXTREMITIES: Show no edema. LABORATORY DATA: Reveal white blood cell count 7, hemoglobin 11.5. Chemistries reveal BUN 21, creat inine 0.9, AST 43, ALT 39. IMPRESSION: A 76-year-old female admitted to the hospital with headaches, vertigo, nausea and vomiti ng, with a CT scan of the abdomen showing a stomach filled with food, which extends into the distal e sophagus. The patient may have a component of gastroparesis secondary to her diabetes mellitus. Her nausea and vomiting appear to have improved. A gastric outlet obstruction needs to be ruled out. RECOMMENDATIONS: 1. Continue PPI. 2. I will start the patient on Reglan 10 mg a.c. and at bedtime. 3. Continue clear liquid diet. 4. I will schedule the patient for an upper endoscopy for Thursday. Denilson Nieto MD cc: [id number] TT: 11/01/2016 18:43:02 Confirmation # [id number] Dictation # [id number]
[2016-11-01] MEDS ORDERED: Arformoterol 15 mcg/2 ml Inh Sol IH SCH (20:00)
[2016-11-02 07:23] LABS: ADD MANUAL DIFF? NO
[2016-11-02 07:31] LABS: BASO # 0.03 K/mm3 (0.0-2.0); BASO % 0.4 % (0.0-3.0); EOS # 0.2 (0.0-0.7); EOS % 2.7 % (1.5-5.0); GRAN # 6.64 (1.4-6.5); GRAN % 77.4 % (50.0-68.0); HEMATOCRIT 35.8 % (36.0-48.0); LYMPH % 11.1 % (22.0-35.0); MEAN CELL VOLUME 87.5 fL (80.0-105.0); MEAN CORPUSCULAR HEMOGLOBIN 28.4 pg (25.0-35.0); MEAN CORPUSCULAR HGB CONC 32.4 g/dl (31.0-37.0); MEAN PLATELET VOLUME 10.6 fl (7.0-11.0); MONO # 0.7 (0.1-0.6); MONO % 8.4 % (1.0-6.0); PLATELET COUNT 342 10^3/uL (120.0-450.0); RED CELL DISTRIBUTION WIDTH 16.1 % (11.5-14.5); WHITE BLOOD COUNT 8.6 10^3/ul (4.5-11.0)
[2016-11-02] MEDS: Arformoterol 15 mcg/2 ml Inh Sol IH SCH ×2 (07:32→19:47)
[2016-11-02] MEDS: Budesonide 0.5 mg/2 ml Inhal Susp UD IH SCH ×2 (07:32→19:47)
[2016-11-02 07:43] LABS: ALKALINE PHOSPHATASE 126 U/L (38-133); ALT/SGPT 58 U/L (7-56); AST/SGOT 43 U/L (15-39); BILIRUBIN,TOTAL 0.3 mg/dL (0.2-1.3); BLOOD UREA NITROGEN 17 mg/dL (7-21); CARBON DIOXIDE 31 mmol/L (21-33); CHLORIDE 104 mmol/L (98-107); GFR AFRICAN-AMERICAN > 60; GLUCOSE,RANDOM 106 mg/dL (70-110); POTASSIUM 3.2 mmol/L (3.6-5.0); SODIUM 137 mmol/L (132-148); TOTAL PROTEIN 5.1 g/dL (5.8-8.3)
[2016-11-02] MEDS: Insulin Reg-MEDIUM-Coverage SC SCH ×4 (08:30→21:34)
[2016-11-02] MEDS: Pantoprazole 40 mg EC Tab PO SCH (08:30)
[2016-11-02] MEDS ORDERED: Potassium Chloride 20 mEq ER Tab PO ONE (08:55)
[2016-11-02] MEDS: Tiotropium 18 mcg Cap For Inhalation IH SCH (10:27)
[2016-11-02] MEDS: Aspirin 325 mg EC Tablets PO SCH (10:28)
[2016-11-02] MEDS: Insulin Detemir 100 units/ml Vial (Levemir) SC SCH ×2 (10:29→17:26)
[2016-11-02] MEDS: cefTRIAXone 1 gm 1 GM/100 ML BAG IVPB SCH (11:00)
--- NOTE | 2016-11-02 12:06 | CP.PCM.PN ---
<Mely Alaniz - Last Filed: 11/02/16 11:59> Subjective - Date & Time of Evaluation Date of Evaluation: 11/02/16 Time of Evaluation: 11:59 - Subjective Subjective: HOSPITLAISTS PROGRESS NOTE Pt is seen and examined at bedside. No acute events overnight. Patient is anxious this morning and states that the light is bothering her. Otherwise, denies having any LINARES, CP, SOB, abd pain, N/V/D/C. Patient's son is called by Dr. River and has been explained everything about his mother's care. Objective - Vital Signs/Intake and Output Vital Signs (last 24 hours): Temp Pulse Resp BP Pulse Ox 97.9 F 70 24 120/67 95 11/02/16 08:00 11/02/16 10:28 11/02/16 08:00 11/02/16 10:28 11/02/16 08:00 Intake and Output: 11/02/16 11/02/16 06:59 18:59 Intake Total 1920 Output Total 4525 Balance -2605 - Medications Medications: Current Medications Acetaminophen (Tylenol 325mg Tab) 650 mg PO Q6H PRN PRN Reason: Headache Last Admin: 11/02/16 05:18 Dose: 650 mg Albuterol Sulfate (Albuterol 0.083% Inhal Lizzie (2.5 Mg/3 Ml) Ud) 2.5 mg IH [id number] PRN PRN Reason: Shortness of Breath Alprazolam (Xanax) 0.25 mg PO Q8 PRN; Protocol PRN Reason: Anxiety Stop: 11/08/16 14:01 Last Admin: 11/02/16 06:07 Dose: 0.25 mg Arformoterol Tartrate (Brovana) 15 mcg IH [id number] [facility] Last Admin: 11/02/16 07:32 Dose: 15 mcg Aspirin (Ecotrin) 325 mg PO DAILY [facility] Last Admin: 11/02/16 10:28 Dose: 325 mg Atorvastatin Calcium (Lipitor) 80 mg PO DIN [facility] Last Admin: 11/01/16 17:25 Dose: 80 mg Budesonide (Pulmicort Respules) 0.5 mg IH [id number] [facility] Last Admin: 11/02/16 07:32 Dose: 0.5 mg Carvedilol (Coreg) 3.125 mg PO BID [facility] Last Admin: 11/02/16 10:28 Dose: 3.125 mg Ferrous Gluconate (Fergon) 324 mg PO DAILY [facility] Last Admin: 11/02/16 10:25 Dose: 324 mg Furosemide (Lasix) 20 mg PO DAILY [facility] Last Admin: 11/02/16 10:28 Dose: 20 mg Gabapentin (Neurontin) 100 mg PO TID [facility] PRN Reason: Protocol Last Admin: 11/02/16 10:28 Dose: 100 mg Heparin Sodium (Porcine) (Heparin) 5,000 units SC Q12 [facility] PRN Reason: Protocol Last Admin: 11/02/16 10:27 Dose: 5,000 units Cefazolin Sodium (Ancef 1gm In Ns) 1 gm in 100 mls @ 100 mls/hr IVPB Q8 [facility] PRN Reason: Protocol Stop: 11/07/16 14:01 Insulin Detemir (Levemir) 10 unit SC BID [facility] Last Admin: 11/02/16 10:29 Dose: Not Given Insulin Human Regular (Humulin R Med) 0 units SC ACHS [facility] PRN Reason: Protocol Last Admin: 11/02/16 08:30 Dose: Not Given Lisinopril (Zestril) 2.5 mg PO DAILY [facility] Last Admin: 11/02/16 10:25 Dose: 2.5 mg Meclizine HCl (Antivert) 12.5 mg PO Q6 PRN PRN Reason: Dizziness Last Admin: 11/01/16 10:50 Dose: 12.5 mg Metoclopramide HCl (Reglan) 10 mg IVP ACHS [facility] Last Admin: 11/02/16 08:30 Dose: 10 mg Ondansetron HCl (Zofran Inj) 4 mg IVP Q4H PRN PRN Reason: Nausea/Vomiting Last Admin: 10/31/16 02:14 Dose: 4 mg Pantoprazole Sodium (Protonix Ec Tab) 40 mg PO 0730 [facility] Last Admin: 11/02/16 08:30 Dose: 40 mg Tiotropium [place] (Spiriva) 18 mcg IH DAILY [facility] Last Admin: 11/02/16 10:27 Dose: 18 mcg - Labs Labs: 11/02/16 07:00 11/02/16 07:00 - Constitutional Appears: Non-toxic, No Acute Distress - Head Exam Head Exam: ATRAUMATIC - ENT Exam ENT Exam: Mucous Membranes Moist - Respiratory Exam Respiratory Exam: Clear to Ausculation Bilateral. absent: Rales, Rhonchi, Wheezes - Cardiovascular Exam Cardiovascular Exam: REGULAR RHYTHM, +S1, +S2 - GI/Abdominal Exam GI & Abdominal Exam: Soft, Normal Bowel Sounds. absent: Distended, Firm, Guarding, Rigid, Tenderness - Extremities Exam Extremities Exam: absent: Pedal Edema, Tenderness - Neurological Exam Neurological Exam: Alert, Awake, Oriented x3 - Psychiatric Exam Psychiatric exam: Normal Affect, Normal Mood - Skin Skin Exam: Dry, Intact, Normal Color, Warm Assessment and Plan - Assessment and Plan (Free Text) Assessment: 76 y/o F presents with severe headache along with nausea and vomiting for 1 day. Pt also was found to have a UTI on UA. Plan: 1. Severe Headache - Neurology consult, recommended continuing firocicet and gabapentin - cont Firoicet 1 tab po q4 and Gabapentin 300mg po TID - Tylenol prn for headache - No neurological deficits - Orthostatics wnl - EKG NSR at 82 with Incomplete RBBB, nonspecific ST abnormality, and prolonged QT - CXR No Active Disease - CXR repeat Mild cardiomegaly and mild vascular congestion - CT Head showed Mod to sig chronic white matter ischemic changes with apparent extension into the white matter tracts of both basal nuclei 2. Nausea/Vomiting - CT Abd/Pelvis IV contrast showed Fluid and food debris in a moderately dilated stomach and distal esophagus - tolerating clear Liq Diet - GI Consult - Dr. Nieto. recommend EGD tomorrow. patient will be NPO after midnight 3. anxiety - consulted psych - xanax 0.25mg prn 4. UTI - cont Rocephin - urine culture- klebsiella - Bello Catheter in place. Will be d/chon once pt goes to rehab - cloudy yellow urine - ID following 5. HTN and hx of CAD with stents and CABG - Continue home coreg - Add lisnopril - Continue Lasix 6. IDDM - ISS LOW - started levemir - HgA1c- pending 7. COPD - Continue home inhalers, spiriva and albuterol - Budesonide .5mg IH q12 - Brovana 15mcg IH Q12 8. HLD - Continue atorvastatin 80mg PO DIN 9. Cellulitis BL LE - ID consult - Dr. Thao - Most likely venous stasis with lower extremity edema from chronic CHF - continue Rocephin; no new abx per ID 10. Hypokalemia - will continue to monitor and replace as needed PPX Protonix Heparin Zofran PT/OT Eval- recommended subacute rehab. Discussed with patient and her son. Case discussed with attending, Dr. River <Sherine River - Last Filed: 11/02/16 16:13> Objective - Vital Signs/Intake and Output Vital Signs (last 24 hours): Temp Pulse Resp BP Pulse Ox 97.9 F 70 24 120/67 95 11/02/16 08:00 11/02/16 10:28 11/02/16 08:00 11/02/16 10:28 11/02/16 08:00 Intake and Output: 11/02/16 11/02/16 06:59 18:59 Intake Total 1920 980 Output Total 4574 1500 Balance -2605 -520 - Medications Medications: Current Medications Acetaminophen (Tylenol 325mg Tab) 650 mg PO Q6H PRN PRN Reason: Headache Last Admin: 11/02/16 14:47 Dose: 650 mg Albuterol Sulfate (Albuterol 0.083% Inhal Lizzie (2.5 Mg/3 Ml) Ud) 2.5 mg IH [id number] PRN PRN Reason: Shortness of Breath Alprazolam (Xanax) 0.25 mg PO Q8 PRN; Protocol PRN Reason: Anxiety Stop: 11/08/16 14:01 Last Admin: 11/02/16 06:07 Dose: 0.25 mg Arformoterol Tartrate (Brovana) 15 mcg IH [id number] [facility] Last Admin: 11/02/16 07:32 Dose: 15 mcg Aspirin (Ecotrin) 325 mg PO DAILY [facility] Last Admin: 11/02/16 10:28 Dose: 325 mg Atorvastatin Calcium (Lipitor) 80 mg PO DIN [facility] Last Admin: 11/01/16 17:25 Dose: 80 mg Budesonide (Pulmicort Respules) 0.5 mg IH [id number] [facility] Last Admin: 11/02/16 07:32 Dose: 0.5 mg Carvedilol (Coreg) 3.125 mg PO BID [facility] Last Admin: 11/02/16 10:28 Dose: 3.125 mg Ferrous Gluconate (Fergon) 324 mg PO DAILY [facility] Last Admin: 11/02/16 10:25 Dose: 324 mg Furosemide (Lasix) 20 mg PO DAILY [facility] Last Admin: 11/02/16 10:28 Dose: 20 mg Gabapentin (Neurontin) 100 mg PO TID [facility] PRN Reason: Protocol Last Admin: 11/02/16 14:48 Dose: 100 mg Heparin Sodium (Porcine) (Heparin) 5,000 units SC Q12 [facility] PRN Reason: Protocol Last Admin: 11/02/16 10:27 Dose: 5,000 units Cefazolin Sodium (Ancef 1gm In Ns) 1 gm in 100 mls @ 100 mls/hr IVPB Q8 [facility] PRN Reason: Protocol Stop: 11/07/16 14:01 Last Admin: 11/02/16 14:48 Dose: 100 mls/hr Insulin Detemir (Levemir) 10 unit SC BID [facility] Last Admin: 11/02/16 10:29 Dose: Not Given Insulin Human Regular (Humulin R Med) 0 units SC ACHS [facility] PRN Reason: Protocol Last Admin: 11/02/16 12:14 Dose: 2 units Lisinopril (Zestril) 2.5 mg PO DAILY [facility] Last Admin: 11/02/16 10:25 Dose: 2.5 mg Meclizine HCl (Antivert) 12.5 mg PO Q6 PRN PRN Reason: Dizziness Last Admin: 11/01/16 10:50 Dose: 12.5 mg Metoclopramide HCl (Reglan) 10 mg IVP ACHS [facility] Last Admin: 11/02/16 12:15 Dose: 10 mg Ondansetron HCl (Zofran Inj) 4 mg IVP Q4H PRN PRN Reason: Nausea/Vomiting Last Admin: 10/31/16 02:14 Dose: 4 mg Pantoprazole Sodium (Protonix Ec Tab) 40 mg PO 0730 [facility] Last Admin: 11/02/16 08:30 Dose: 40 mg Tiotropium [place] (Spiriva) 18 mcg IH DAILY [facility] Last Admin: 11/02/16 10:27 Dose: 18 mcg - Labs Labs: 11/02/16 07:00 11/02/16 07:00 Attending/Attestation - Attestation I have personally seen and examined this patient.: Yes I have fully participated in the care of the patient.: Yes I have reviewed all pertinent clinical information, including history, physical exam and plan: Yes Notes (Text): 11/02/16 16:10 attending note; Patient seen and examined with resident in bed 567. Patient is alert, awake and oriented. patient is a 76 y/o Female with PMH of HTN, IDDM, COPD, CHF, HLD, and CAD and hx of CABG presents to ED from detention for 1 day history of severe headache accompanied by nausea and vomiting. CT head was negative for any acute infarct. Chronic changes noted. Neurology evaluation appreciated. Continue Neurontin and Fioricet. nausea or vomiting; resolved. CT abdomen showed mildly dilated stomach with debries. GI evaluation appreciated. Possible EGD on Thursday. tolerating clear liquid diet. Visually impaired/hearing-impaired/diabetic neuropathy. lower extremity redness; improving. On Rocephin. ID evaluation with DR. thao appreciated Possible UTI; has Bello catheter. Urine culture is positive for klebsiella. Hypertension; continue medication. Diabetes; continue insulin. case discussed with Dr. Livan Sanders in [facility]. anxiety; started on low-dose Xanax. Psychiatric evaluation appreciated. Physical therapy evaluation appreciated. Subacute rehabilitation recommended. the diagnosis and treatment plan discussed with patient's son sai Calle in detail. Upon discharge the patient will follow up with DR. horne PMKaren. Follow-up with cardiology DR. Livan Sanders. 11/02/16 16:13
--- NOTE | 2016-11-02 14:45 | CON ---
DATE: 11/02/2016 The patient is a 76-year-old female with a history of depression and anxiety, multiple medica l issues (please refer to medical note for list of medical issues), who was transferred from the [facility] home for a history of severe headaches accompanied by nausea and vomiting. Apparently during the course of the patient's hospitalization, she became emotional, cried during the interview, indicarayshawn g that she was anxious because she did not feel like she had much control. Psychiatry was consulted to evaluate for her anxiety on the unit. I reviewed recent notes and met with patient at bedside. The patient is cooperative; however, her fo cus is inconsistent. The patient is aware that she is in the hospital; however, she has no idea what she is being treated for. She does not know why she was admitted to the hospital. She does not kno w what the current month; however, she does know it is 2016. Regarding her mood symptoms, the patien t does admit that she does get depressed sometimes. However, she denies any current depression. Ind icates that she does feel really anxious and most of her anxiety is because she is upset about she do es not know why she was admitted to the hospital and she does not know why she continues to be in the hospital. She feels that her treatment team has not given her enough time and presented all the inf ormation to her properly and comprehensively. I asked patient if there is any other reason why she c ould be anxious, and she adamantly denied that there were no other reasons why she was anxious. She keeps repeating, "I don't know why I'm here and what is wrong with me. I wish I knew." Regarding wh ether the symptoms were present prior to her hospitalization, the patient replied, 'No, I was good la st week." The patient is hopeful. She is not delusional. She denies hallucinations. She does appe ar to be a little bit disoriented and it is unclear how much of her lack of knowledge is due to the f act that she might be delirious. For example, she did not know the month during today's interview, a nd patient also reports that she lives at home with her son, Shane; however, medical records indicate that [facility]. Presently, she is in good control and she reports willingness to work with the treatment team for her medical issues. PSYCHIATRIC HISTORY: The patient denies any psychiatric hospitalizations or suicide attempts. She d enies any psychiatric outpatient followup. SOCIAL HISTORY: The patient was born and raised in [place]. She is . She has 4 kids; ho wever, only 3 of them are living. She indicates that she lives at home with her son, Shane; however, notes indicate that she [facility] in the [facility]. The patient denies any drug or alcohol issues and throughout her life. LABORATORY DATA AND VITAL SIGNS: Reviewed by this provider. RELEVANT PSYCHIATRIC MEDICATIONS: Include Xanax 0.25 mg p.o. q. 8 p.r.n. IMPRESSION: Adjustment disorder with anxiety, rule out delirium in this 76-year-old female, possible mild dementia. RECOMMENDATIONS: Would have treatment team discuss patient's current treatment and reason for hospit alization with her. Please have staff members also repeat this information to her as well in case th ere is a component of delirium. Regarding her anxiety, Xanax appears to be a very low dose and does not be contributing to her confusion considering she only received 2 doses, one at 11 a.m. yesterday and one at 6 a.m. this morning. Would continue with this medication. Psychiatry can follow up with patient every other day to follow up on her mental status and her anxiety symptoms. If there are any acute changes in her presentation, please feel free to call for psychiatric to follow up more freque ntly. Jadyn Andrade MD cc: [id number] TT: 11/02/2016 14:44:30 Confirmation # [id number] Dictation # [id number] kena
[2016-11-02] MEDS: ceFAZolin 1 gm in NS 1 GM/100 ML BAG IVPB SCH ×2 (14:48→21:25)
--- NOTE | 2016-11-02 19:51 | CP.PCM.PN ---
Subjective - Date & Time of Evaluation Date of Evaluation: 11/02/16 Time of Evaluation: 11:35 - Subjective Subjective: Comfortable, afebrile, not in distress. Objective - Vital Signs/Intake and Output Vital Signs (last 24 hours): Temp Pulse Resp BP Pulse Ox 97.9 F 78 24 122/68 95 11/02/16 08:00 11/02/16 17:21 11/02/16 08:00 11/02/16 17:21 11/02/16 08:00 Intake and Output: 11/02/16 11/03/16 18:59 06:59 Intake Total 1180 Output Total 1500 Balance -320 - Medications Medications: Current Medications Acetaminophen (Tylenol 325mg Tab) 650 mg PO Q6H PRN PRN Reason: Headache Last Admin: 11/02/16 14:47 Dose: 650 mg Albuterol Sulfate (Albuterol 0.083% Inhal Lizzie (2.5 Mg/3 Ml) Ud) 2.5 mg IH [id number] PRN PRN Reason: Shortness of Breath Alprazolam (Xanax) 0.25 mg PO Q8 PRN; Protocol PRN Reason: Anxiety Stop: 11/08/16 14:01 Last Admin: 11/02/16 18:26 Dose: 0.25 mg Arformoterol Tartrate (Brovana) 15 mcg IH [id number] [facility] Last Admin: 11/02/16 19:47 Dose: 15 mcg Aspirin (Ecotrin) 325 mg PO DAILY [facility] Last Admin: 11/02/16 10:28 Dose: 325 mg Atorvastatin Calcium (Lipitor) 80 mg PO DIN [facility] Last Admin: 11/02/16 17:21 Dose: 80 mg Budesonide (Pulmicort Respules) 0.5 mg IH [id number] [facility] Last Admin: 11/02/16 19:47 Dose: 0.5 mg Carvedilol (Coreg) 3.125 mg PO BID [facility] Last Admin: 11/02/16 17:21 Dose: 3.125 mg Ferrous Gluconate (Fergon) 324 mg PO DAILY [facility] Last Admin: 11/02/16 10:25 Dose: 324 mg Furosemide (Lasix) 20 mg PO DAILY [facility] Last Admin: 11/02/16 10:28 Dose: 20 mg Gabapentin (Neurontin) 100 mg PO TID [facility] PRN Reason: Protocol Last Admin: 11/02/16 17:24 Dose: 100 mg Heparin Sodium (Porcine) (Heparin) 5,000 units SC Q12 [facility] PRN Reason: Protocol Last Admin: 11/02/16 10:27 Dose: 5,000 units Cefazolin Sodium (Ancef 1gm In Ns) 1 gm in 100 mls @ 100 mls/hr IVPB Q8 [facility] PRN Reason: Protocol Stop: 11/07/16 14:01 Last Admin: 11/02/16 14:48 Dose: 100 mls/hr Insulin Detemir (Levemir) 10 unit SC BID [facility] Last Admin: 11/02/16 17:26 Dose: 10 unit Insulin Human Regular (Humulin R Med) 0 units SC ACHS [facility] PRN Reason: Protocol Last Admin: 11/02/16 17:25 Dose: 5 units Lisinopril (Zestril) 2.5 mg PO DAILY [facility] Last Admin: 11/02/16 10:25 Dose: 2.5 mg Meclizine HCl (Antivert) 12.5 mg PO Q6 PRN PRN Reason: Dizziness Last Admin: 11/01/16 10:50 Dose: 12.5 mg Metoclopramide HCl (Reglan) 10 mg IVP ACHS [facility] Last Admin: 11/02/16 17:25 Dose: 10 mg Ondansetron HCl (Zofran Inj) 4 mg IVP Q4H PRN PRN Reason: Nausea/Vomiting Last Admin: 10/31/16 02:14 Dose: 4 mg Pantoprazole Sodium (Protonix Ec Tab) 40 mg PO 0730 [facility] Last Admin: 11/02/16 08:30 Dose: 40 mg Tiotropium [place] (Spiriva) 18 mcg IH DAILY [facility] Last Admin: 11/02/16 10:27 Dose: 18 mcg - Labs Labs: 11/02/16 07:00 11/02/16 07:00 - Constitutional Appears: Non-toxic, No Acute Distress - Head Exam Head Exam: NORMAL INSPECTION - ENT Exam ENT Exam: Mucous Membranes Moist - Neck Exam Neck Exam: absent: Lymphadenopathy, Meningismus - Respiratory Exam Respiratory Exam: Decreased Breath Sounds - Cardiovascular Exam Cardiovascular Exam: +S1, +S2 - GI/Abdominal Exam GI & Abdominal Exam: Soft. absent: Tenderness Assessment and Plan - Assessment and Plan (Free Text) Plan: Assessment Probable venous stasis with lower extremity edema from chronic CHF urinary tract infection, lower tract with Klebsiella CAD S/P PCI and S/P CABG chronic CHF COPD DM HTN dyslipidemia S/P right toe amputation S/P hysterectomy Plan since the Klebsiella is cabral-sensitive, will switch Rocephin to Cefazolin will continue to monitor clinically
[2016-11-02] MEDS ORDERED: DiphenhydrAMINE 50 mg/ml Inj IVP ONE (23:11)
[2016-11-03] MEDS: ceFAZolin 1 gm in NS 1 GM/100 ML BAG IVPB SCH ×2 (06:22→13:34)
[2016-11-03 06:54] LABS: ADD MANUAL DIFF? NO
[2016-11-03 07:16] LABS: BASO # 0.05 K/mm3 (0.0-2.0); BASO % 0.7 % (0.0-3.0); EOS # 0.3 (0.0-0.7); EOS % 4.4 % (1.5-5.0); GRAN # 4.24 (1.4-6.5); GRAN % 62.2 % (50.0-68.0); HEMATOCRIT 37.2 % (36.0-48.0); LYMPH # 1.4 (1.2-3.4); LYMPH % 19.9 % (22.0-35.0); MEAN CELL VOLUME 87.7 fL (80.0-105.0); MEAN CORPUSCULAR HEMOGLOBIN 28.1 pg (25.0-35.0); MEAN PLATELET VOLUME 10.7 fl (7.0-11.0); MONO # 0.9 (0.1-0.6); MONO % 12.8 % (1.0-6.0); PLATELET COUNT 341 10^3/uL (120.0-450.0); WHITE BLOOD COUNT 6.8 10^3/ul (4.5-11.0)
[2016-11-03 07:27] LABS: ALKALINE PHOSPHATASE 134 U/L (38-133); ALT/SGPT 56 U/L (7-56); AST/SGOT 40 U/L (15-39); BILIRUBIN,TOTAL 0.3 mg/dL (0.2-1.3); BLOOD UREA NITROGEN 13 mg/dL (7-21); CALCIUM 8.1 mg/dL (8.4-10.5); CARBON DIOXIDE 33 mmol/L (21-33); CHLORIDE 102 mmol/L (95-110); GFR AFRICAN-AMERICAN > 60; GLUCOSE,RANDOM 176 mg/dL (70-110); POTASSIUM 3.7 mmol/L (3.6-5.0); SODIUM 138 mmol/L (132-148); TOTAL PROTEIN 5.3 g/dL (5.8-8.3)
[2016-11-03] MEDS: Budesonide 0.5 mg/2 ml Inhal Susp UD IH SCH ×2 (07:32→20:02)
[2016-11-03] MEDS: Arformoterol 15 mcg/2 ml Inh Sol IH SCH ×2 (07:32→20:02)
[2016-11-03] MEDS: Pantoprazole 40 mg EC Tab PO SCH (08:21)
[2016-11-03] MEDS: Insulin Reg-MEDIUM-Coverage SC SCH ×3 (08:21→16:48)
[2016-11-03] MEDS: Aspirin 325 mg EC Tablets PO SCH (09:44)
[2016-11-03] MEDS ORDERED: Propofol 10 mg/ml Inj (20 ML) ONE (11:51)
[2016-11-03] MEDS ORDERED: Lactated Ringer's 1,000 ML IV SCH (12:18)
[2016-11-03] MEDS: Tiotropium 18 mcg Cap For Inhalation IH SCH (13:29)
[2016-11-03] MEDS: Insulin Detemir 100 units/ml Vial (Levemir) SC SCH ×2 (13:29→17:57)
--- NOTE | 2016-11-03 14:54 | CP.PCM.PN ---
Subjective - Date & Time of Evaluation Date of Evaluation: 11/03/16 Time of Evaluation: 10:10 - Subjective Subjective: Comfortable in bed, not in distress, aferile. Objective - Vital Signs/Intake and Output Vital Signs (last 24 hours): Temp Pulse Resp BP Pulse Ox 98.1 F 63 15 174/59 H 99 11/03/16 12:46 11/03/16 12:46 11/03/16 12:46 11/03/16 12:46 11/03/16 12:46 Intake and Output: 11/03/16 11/03/16 06:59 18:59 Intake Total 660 Balance 660 - Medications Medications: Current Medications Acetaminophen (Tylenol 325mg Tab) 650 mg PO Q6H PRN PRN Reason: Headache Last Admin: 11/03/16 09:41 Dose: 650 mg Albuterol Sulfate (Albuterol 0.083% Inhal Lizzie (2.5 Mg/3 Ml) Ud) 2.5 mg IH [id number] PRN PRN Reason: Shortness of Breath Alprazolam (Xanax) 0.25 mg PO Q8 PRN; Protocol PRN Reason: Anxiety Stop: 11/08/16 14:01 Last Admin: 11/02/16 18:26 Dose: 0.25 mg Arformoterol Tartrate (Brovana) 15 mcg IH [id number] [facility] Last Admin: 11/03/16 07:32 Dose: 15 mcg Aspirin (Ecotrin) 325 mg PO DAILY [facility] Last Admin: 11/03/16 09:44 Dose: Not Given Atorvastatin Calcium (Lipitor) 80 mg PO DIN [facility] Last Admin: 11/02/16 17:21 Dose: 80 mg Budesonide (Pulmicort Respules) 0.5 mg IH [id number] [facility] Last Admin: 11/03/16 07:32 Dose: 0.5 mg Carvedilol (Coreg) 3.125 mg PO BID [facility] Last Admin: 11/03/16 09:43 Dose: 3.125 mg Ferrous Gluconate (Fergon) 324 mg PO DAILY [facility] Last Admin: 11/03/16 09:45 Dose: Not Given Furosemide (Lasix) 20 mg PO DAILY [facility] Last Admin: 11/03/16 09:45 Dose: 20 mg Gabapentin (Neurontin) 100 mg PO TID [facility] PRN Reason: Protocol Last Admin: 11/03/16 13:34 Dose: 100 mg Heparin Sodium (Porcine) (Heparin) 5,000 units SC Q12 [facility] PRN Reason: Protocol Last Admin: 11/03/16 09:45 Dose: Not Given Cefazolin Sodium (Ancef 1gm In Ns) 1 gm in 100 mls @ 100 mls/hr IVPB Q8 [facility] PRN Reason: Protocol Stop: 11/07/16 14:01 Last Admin: 11/03/16 13:34 Dose: 100 mls/hr Lactated Ringer's (Lactated Ringer's) 1,000 mls @ 75 mls/hr IV [id number] [facility] Insulin Detemir (Levemir) 10 unit SC BID [facility] Last Admin: 11/03/16 13:29 Dose: Not Given Insulin Human Regular (Humulin R Med) 0 units SC ACHS [facility] PRN Reason: Protocol Last Admin: 11/03/16 13:29 Dose: Not Given Lisinopril (Zestril) 2.5 mg PO DAILY [facility] Last Admin: 11/03/16 09:45 Dose: 2.5 mg Meclizine HCl (Antivert) 12.5 mg PO Q6 PRN PRN Reason: Dizziness Last Admin: 11/01/16 10:50 Dose: 12.5 mg Metoclopramide HCl (Reglan) 10 mg IVP ACHS [facility] Last Admin: 11/03/16 13:29 Dose: 10 mg Ondansetron HCl (Zofran Inj) 4 mg IVP Q4H PRN PRN Reason: Nausea/Vomiting Last Admin: 10/31/16 02:14 Dose: 4 mg Pantoprazole Sodium (Protonix Ec Tab) 40 mg PO 0730 [facility] Last Admin: 11/03/16 08:21 Dose: 40 mg Tiotropium [place] (Spiriva) 18 mcg IH DAILY [facility] Last Admin: 11/03/16 13:29 Dose: Not Given - Labs Labs: 11/03/16 06:30 11/03/16 06:30 - Constitutional Appears: Non-toxic, No Acute Distress - Head Exam Head Exam: NORMAL INSPECTION - ENT Exam ENT Exam: Mucous Membranes Moist - Neck Exam Neck Exam: absent: Lymphadenopathy, Meningismus - Respiratory Exam Respiratory Exam: Decreased Breath Sounds - Cardiovascular Exam Cardiovascular Exam: +S1, +S2 - GI/Abdominal Exam GI & Abdominal Exam: Soft. absent: Tenderness Assessment and Plan - Assessment and Plan (Free Text) Plan: Assessment Probable venous stasis with lower extremity edema from chronic CHF urinary tract infection, lower tract with Klebsiella CAD S/P PCI and S/P CABG chronic CHF COPD DM HTN dyslipidemia S/P right toe amputation S/P hysterectomy Plan since the Klebsiella is cabral-sensitive, continue Cefazolin - she can be switched to Keflex to complete 5-7 days of therapy -discussed with Barbra the nurse practitioner
--- NOTE | 2016-11-03 18:45 | CP.PCM.PN ---
<GreenWang - Last Filed: 11/03/16 22:23> Subjective - Date & Time of Evaluation Date of Evaluation: 11/03/16 Time of Evaluation: 09:15 - Subjective Subjective: HOSPITLAISTS PROGRESS NOTE Pt is seen and examined at bedside. No acute events overnight. Patient would like to go home, but still is anxious. She is scheduled for a EGD later today. She denies having any LINARES, CP, SOB, abd pain, N/V/D/C. Objective - Vital Signs/Intake and Output Vital Signs (last 24 hours): Temp Pulse Resp BP Pulse Ox 98.1 F 80 15 140/68 99 11/03/16 12:46 11/03/16 17:56 11/03/16 12:46 11/03/16 17:56 11/03/16 12:46 Intake and Output: 11/03/16 11/03/16 06:59 18:59 Intake Total 660 Balance 660 - Medications Medications: Current Medications Acetaminophen (Tylenol 325mg Tab) 650 mg PO Q6H PRN PRN Reason: Headache Last Admin: 11/03/16 15:22 Dose: 650 mg Albuterol Sulfate (Albuterol 0.083% Inhal Lizzie (2.5 Mg/3 Ml) Ud) 2.5 mg IH [id number] PRN PRN Reason: Shortness of Breath Alprazolam (Xanax) 0.25 mg PO Q8 PRN; Protocol PRN Reason: Anxiety Stop: 11/08/16 14:01 Last Admin: 11/02/16 18:26 Dose: 0.25 mg Arformoterol Tartrate (Brovana) 15 mcg IH [id number] [facility] Last Admin: 11/03/16 07:32 Dose: 15 mcg Aspirin (Ecotrin) 325 mg PO DAILY [facility] Last Admin: 11/03/16 09:44 Dose: Not Given Atorvastatin Calcium (Lipitor) 80 mg PO DIN [facility] Last Admin: 11/03/16 17:57 Dose: 80 mg Budesonide (Pulmicort Respules) 0.5 mg IH [id number] [facility] Last Admin: 11/03/16 07:32 Dose: 0.5 mg Carvedilol (Coreg) 3.125 mg PO BID [facility] Last Admin: 11/03/16 17:56 Dose: 3.125 mg Cephalexin Monohydrate (Keflex) 500 mg PO Q6 [facility] PRN Reason: Protocol Ferrous Gluconate (Fergon) 324 mg PO DAILY [facility] Last Admin: 11/03/16 09:45 Dose: Not Given Furosemide (Lasix) 20 mg PO DAILY [facility] Last Admin: 11/03/16 09:45 Dose: 20 mg Gabapentin (Neurontin) 100 mg PO TID [facility] PRN Reason: Protocol Last Admin: 11/03/16 17:57 Dose: 100 mg Heparin Sodium (Porcine) (Heparin) 5,000 units SC Q12 [facility] PRN Reason: Protocol Last Admin: 11/03/16 09:45 Dose: Not Given Lactated Ringer's (Lactated Ringer's) 1,000 mls @ 75 mls/hr IV .[id number] [facility] Insulin Detemir (Levemir) 10 unit SC BID [facility] Last Admin: 11/03/16 17:57 Dose: 10 unit Insulin Human Regular (Humulin R Med) 0 units SC ACHS [facility] PRN Reason: Protocol Last Admin: 11/03/16 16:48 Dose: 5 units Lisinopril (Zestril) 2.5 mg PO DAILY [facility] Last Admin: 11/03/16 09:45 Dose: 2.5 mg Meclizine HCl (Antivert) 12.5 mg PO Q6 PRN PRN Reason: Dizziness Last Admin: 11/01/16 10:50 Dose: 12.5 mg Metoclopramide HCl (Reglan) 10 mg IVP ACHS [facility] Last Admin: 11/03/16 16:48 Dose: 10 mg Ondansetron HCl (Zofran Inj) 4 mg IVP Q4H PRN PRN Reason: Nausea/Vomiting Last Admin: 10/31/16 02:14 Dose: 4 mg Pantoprazole Sodium (Protonix Ec Tab) 40 mg PO 0730 [facility] Last Admin: 11/03/16 08:21 Dose: 40 mg Tiotropium Enochs (Spiriva) 18 mcg IH DAILY [facility] Last Admin: 11/03/16 13:29 Dose: Not Given - Labs Labs: 11/03/16 06:30 11/03/16 06:30 - Constitutional Appears: Non-toxic, No Acute Distress - Head Exam Head Exam: ATRAUMATIC - ENT Exam ENT Exam: Mucous Membranes Moist - Respiratory Exam Respiratory Exam: Clear to Ausculation Bilateral. absent: Rales, Rhonchi, Wheezes - Cardiovascular Exam Cardiovascular Exam: REGULAR RHYTHM, +S1, +S2 - GI/Abdominal Exam GI & Abdominal Exam: Soft, Normal Bowel Sounds. absent: Distended, Firm, Guarding, Rigid, Tenderness - Extremities Exam Extremities Exam: absent: Pedal Edema, Tenderness - Neurological Exam Neurological Exam: Alert, Awake, Oriented x3 - Psychiatric Exam Psychiatric exam: Normal Affect, Normal Mood - Skin Skin Exam: Dry, Intact, Normal Color, Warm Assessment and Plan - Assessment and Plan (Free Text) Assessment: 76 y/o F presents with severe headache along with nausea and vomiting for 1 day. Pt also was found to have a UTI on UA. Plan: 1. Severe Headache - Neurology consult, recommended continuing firocicet and gabapentin - cont Firoicet 1 tab po q4 and Gabapentin 300mg po TID - Tylenol prn for headache - No neurological deficits - Orthostatics wnl - EKG NSR at 82 with Incomplete RBBB, nonspecific ST abnormality, and prolonged QT - CXR No Active Disease - CXR repeat Mild cardiomegaly and mild vascular congestion - CT Head showed Mod to sig chronic white matter ischemic changes with apparent extension into the white matter tracts of both basal nuclei 2. Nausea/Vomiting - CT Abd/Pelvis IV contrast showed Fluid and food debris in a moderately dilated stomach and distal esophagus - tolerating clear Liq Diet - GI Consult - Dr. Nieto. EGD - please see full report -LA Grade A esophagitis -Gastritis. Biopsied -Normal examined duodenum -Resume reg diet -Cont present meds -Use Protonix 40mg PO daily -Await Pathology results 3. Anxiety - xanax 0.25mg prn - consulted psych - Dr. Andrade -discuss/repeat with patient, reasoning as to why she is in the hospital in case of component of delerium -continue Xanax - not causing anxiety -will follow 4. UTI - start Keflex on d/c - urine culture- klebsiella - ID following 5. HTN and hx of CAD with stents and CABG - Continue home coreg - Add lisnopril - Continue Lasix 6. IDDM - ISS LOW - started levemir - HgA1c- pending 7. COPD - Continue home inhalers, spiriva and albuterol - Budesonide .5mg IH q12 - Brovana 15mcg IH Q12 8. HLD - Continue atorvastatin 80mg PO DIN 9. Cellulitis BL LE - ID consult - Dr. Chin - Most likely venous stasis with lower extremity edema from chronic CHF - continue Rocephin - switch to Keflex 500mg on d/c for 7 days 10. Hypokalemia - will continue to monitor and replace as needed PPX Protonix Heparin Zofran PT/OT Eval- recommended subacute rehab. Discussed with patient and her son. <Aj Barnett - Last Filed: 11/08/16 11:13> Objective - Vital Signs/Intake and Output Vital Signs (last 24 hours): Temp Pulse Resp BP Pulse Ox 98.0 F 72 20 140/74 95 11/04/16 07:30 11/04/16 10:49 11/04/16 07:30 11/04/16 10:49 11/04/16 07:30 - Labs Labs: 11/04/16 06:55 11/04/16 06:55 Attending/Attestation - Attestation I have personally seen and examined this patient.: Yes I have fully participated in the care of the patient.: Yes I have reviewed all pertinent clinical information, including history, physical exam and plan: Yes Notes (Text): I have seen and examined patient at bedside with the resident. Agree with the note above with the following additions/ exceptions: This is 76 year old female with history of anxiety, HTN, CAD s/p stents and CABG, IDDM, COPD, dyslipidemia who presented with nausea, vomiting for a day and found to have UTI. Urine culture is growing klebsiella. Also has cellulitis of bilateral LE. Currently on rocephin. Will discharge her on keflex. She continues to complain of headache. Fioricet and gabapentin started. CT head showed chronic ischemic changes. CT Abd/Pelvis IV contrast showed Fluid and food debris in a moderately dilated stomach and distal esophagus. EGD was done to rule out gastric outlet obstruction which showed grade 1 esophagitis. Recommended protonix. Path results pending. Psych consult appreciated. PT recommended subacute rehab. Discussed with patient and her son. Dr Aj Barnett
[2016-11-04 07:09] LABS: ADD MANUAL DIFF? NO
[2016-11-04 07:17] LABS: BASO # 0.02 K/mm3 (0.0-2.0); BASO % 0.3 % (0.0-3.0); EOS # 0.1 (0.0-0.7); GRAN # 4.19 (1.4-6.5); GRAN % 72.8 % (50.0-68.0); HEMATOCRIT 37.4 % (36.0-48.0); LYMPH # 1.1 (1.2-3.4); LYMPH % 19.6 % (22.0-35.0); MEAN CORPUSCULAR HEMOGLOBIN 28.6 pg (25.0-35.0); MEAN CORPUSCULAR HGB CONC 32.9 g/dl (31.0-37.0); MEAN PLATELET VOLUME 10.7 fl (7.0-11.0); MONO # 0.4 (0.1-0.6); MONO % 6.3 % (1.0-6.0); PLATELET COUNT 330 10^3/uL (120.0-450.0); RED CELL DISTRIBUTION WIDTH 15.8 % (11.5-14.5); WHITE BLOOD COUNT 5.8 10^3/ul (4.5-11.0)
[2016-11-04] MEDS: Budesonide 0.5 mg/2 ml Inhal Susp UD IH SCH (07:18)
[2016-11-04] MEDS: Arformoterol 15 mcg/2 ml Inh Sol IH SCH (07:18)
[2016-11-04 07:24] LABS: ALKALINE PHOSPHATASE 134 U/L (38-133); ALT/SGPT 44 U/L (7-56); AST/SGOT 26 U/L (15-39); BILIRUBIN,TOTAL 0.2 mg/dL (0.2-1.3); BLOOD UREA NITROGEN 13 mg/dL (7-21); CARBON DIOXIDE 28 mmol/L (21-33); CHLORIDE 105 mmol/L (95-110); GFR AFRICAN-AMERICAN > 60; GLUCOSE,RANDOM 261 mg/dL (70-110); POTASSIUM 3.5 mmol/L (3.6-5.0); SODIUM 136 mmol/L (132-148)
[2016-11-04] MEDS: Pantoprazole 40 mg EC Tab PO SCH (07:50)
[2016-11-04] MEDS: Insulin Reg-MEDIUM-Coverage SC SCH ×2 (07:51→11:41)
[2016-11-04 08:09] VITALS: RESP 20; TEMP 98; O2SAT 95
[2016-11-04] MEDS ORDERED: Potassium Chloride 20 mEq ER Tab PO ONE (09:23)
--- NOTE | 2016-11-04 09:53 | CP.PCM.DIS ---
<GreenWang jerez - Last Filed: 11/04/16 22:49> Provider - Provider Date of Admission: 10/31/16 12:00 Attending physician: Aj Barnett MD Primary care physician: Xavier Taylor MD Time Spent in preparation of Discharge (in minutes): 35 Hospital Course - Lab Results Lab Results: Most Recent Lab Values WBC 5.8 10^3/ul (4.5-11.0) 11/04/16 06:55 RBC 4.30 10^6/uL (3.5-6.1) 11/04/16 06:55 Hgb 12.3 gm/dL (12.0-16.0) 11/04/16 06:55 Hct 37.4 % (36.0-48.0) 11/04/16 06:55 MCV 87.0 fL (80.0-105.0) 11/04/16 06:55 MCH 28.6 pg (25.0-35.0) 11/04/16 06:55 MCHC 32.9 g/dl (31.0-37.0) 11/04/16 06:55 RDW 15.8 % (11.5-14.5) H 11/04/16 06:55 Plt Count 330 10^3/uL (120.0-450.0) 11/04/16 06:55 MPV 10.7 fl (7.0-11.0) 11/04/16 06:55 Gran % 72.8 % (50.0-68.0) H 11/04/16 06:55 Lymph % (Auto) 19.6 % (22.0-35.0) L 11/04/16 06:55 [place] % (Auto) 6.3 % (1.0-6.0) H 11/04/16 06:55 Eos % (Auto) 1.0 % (1.5-5.0) L 11/04/16 06:55 Baso % (Auto) 0.3 % (0.0-3.0) 11/04/16 06:55 Gran # 4.19 (1.4-6.5) 11/04/16 06:55 Lymph # 1.1 (1.2-3.4) L 11/04/16 06:55 [place] # 0.4 (0.1-0.6) 11/04/16 06:55 Eos # 0.1 (0.0-0.7) 11/04/16 06:55 Baso # 0.02 K/mm3 (0.0-2.0) 11/04/16 06:55 Sodium 136 mmol/L (132-148) 11/04/16 06:55 Potassium 3.5 mmol/L (3.6-5.0) L 11/04/16 06:55 Chloride 105 mmol/L (95-110) 11/04/16 06:55 Carbon Dioxide 28 mmol/L (21-33) 11/04/16 06:55 Anion Gap 7 (10-20) L 11/04/16 06:55 BUN 13 mg/dL (7-21) 11/04/16 06:55 Creatinine 0.8 mg/dL (0.5-1.4) 11/04/16 06:55 Est GFR ( Amer) > 60 11/04/16 06:55 Est GFR (Non-Af Amer) > 60 11/04/16 06:55 POC Glucose (mg/dL) 227 mg/dL (65-110) H 11/01/16 21:18 Random Glucose 261 mg/dL (70-110) H 11/04/16 06:55 Hemoglobin A1c 9.0 % (4.2-6.5) H 10/31/16 06:30 Calcium 8.0 mg/dL (8.4-10.5) L 11/04/16 06:55 Phosphorus 4.3 mg/dL (2.5-4.5) 10/31/16 06:30 Magnesium 2.2 mg/dL (1.7-2.2) 10/31/16 06:30 Total Bilirubin 0.2 mg/dL (0.2-1.3) 11/04/16 06:55 AST 26 U/L (15-39) 11/04/16 06:55 ALT 44 U/L (7-56) 11/04/16 06:55 Alkaline Phosphatase 134 U/L (38-133) H 11/04/16 06:55 Total Creatine Kinase 80 U/L (35-230) 10/30/16 13:00 Troponin I 0.03 ng/mL D 10/31/16 22:30 NT-Pro-B Natriuret Pep 3000 pg/mL (0-450) H 10/31/16 06:30 Total Protein 5.0 g/dL (5.8-8.3) L 11/04/16 06:55 Albumin 2.6 g/dL (3.0-4.8) L 11/04/16 06:55 Globulin 2.5 gm/dL 11/04/16 06:55 Albumin/Globulin Ratio 1.0 (1.1-1.8) L 11/04/16 06:55 Lipase 71 U/L (23-300) 10/30/16 13:00 Urine Color Yellow (YELLOW) 10/30/16 20:02 Urine Appearance Cloudy (CLEAR) 10/30/16 20:02 Urine pH 7.0 (4.7-8.0) 10/30/16 20:02 Ur Specific [place] 1.020 (1.005-1.035) 10/30/16 20:02 Urine Protein >=300 mg/dL (<30 mg/dL) H 10/30/16 20:02 Urine Glucose (UA) Negative mg/dL (NEGATIVE) 10/30/16 20:02 Urine Ketones Negative mg/dL (NEGATIVE) 10/30/16 20:02 Urine Blood Large (NEGATIVE) H 10/30/16 20:02 Urine Nitrate Negative (NEGATIVE) 10/30/16 20:02 Urine Bilirubin Negative (NEGATIVE) 10/30/16 20:02 Urine Urobilinogen 0.2 E.U./dL (<1 E.U./dL) 10/30/16 20:02 Ur Leukocyte Esterase Small Chalo/uL (NEGATIVE) H 10/30/16 20:02 Urine RBC 2 - 5 /hpf (0-2) 10/30/16 20:02 Urine WBC 5 - 10 /hpf (0-6) 10/30/16 20:02 Ur Epithelial Cells 0 - 2 /hpf (0-5) 10/30/16 20:02 Urine Bacteria Many (NEG) 10/30/16 20:02 - Hospital Course Hospital Course: 76 y/o F with PMH of HTN, IDDM, COPD, CHF, HLD, and CAD with recent stent placement 6 months ago and hx of CABG presented to ED from adult daycare for severe headache accompanied by nausea and vomiting. Pt states she has had a severe left sided headache for the past day. Pain in head does not radiate and she does not complain of any acute visual changes. Pt received tylenol for headache, but states it did not help. Due to the pt's multiple comorbidities and presentation a CT head was ordered which showed Mod to sig chronic white matter ischemic changes with apparent extension into the white matter tracts of both basal nuclei, with no acute pathology. Neurology was consulted and recommended continuing fiorcicet and gabapentin. For cardiogenic causes of her presentation EKG, CXR and serial cardiac enzymes were ordered, which did not show signs of ACS. For her nausea and vomiting a CT Abd/Pel with IV contrast was ordered showing fluid and food debris in a moderately dilated stomach and distal esophagus. GI was consulted and EGD was performed showing LA Grade A esophagitis, gastritis, which was biopsied and normal examined duodenum. Pt. was then started on a liquid diet and then slowly advanced. By day of discharge , she was tolerating a normal diet. Pt. was also treated for a UTI from Klebsiella and discharged on Keflex. This is a brief account of her stay. For more information, please see her chart. - Date & Time of H&P Date of H&P: 11/04/16 Time of H&P: 07:40 Discharge Exam - Head Exam Head Exam: NORMAL INSPECTION - Eye Exam Eye Exam: EOMI, Normal appearance - ENT Exam ENT Exam: Mucous Membranes Moist - Neck Exam Neck exam: Full Rom - Respiratory Exam Respiratory Exam: Clear to PA & Lateral, NORMAL BREATHING PATTERN, UNREMARKABLE - Cardiovascular Exam Cardiovascular Exam: REGULAR RHYTHM, RRR, +S1, +S2. absent: JVD - GI/Abdominal Exam GI & Abdominal Exam: Normal Bowel Sounds, Soft, Unremarkable. absent: Tenderness - Neurological Exam Neurological exam: Alert, CN II-XII Intact, Oriented x3 - Psychiatric Exam Psychiatric exam: Normal Affect, Normal Mood - Skin Skin Exam: Dry, Intact, Normal Color, Warm Discharge Plan - Discharge Medications Prescriptions: Cephalexin [cephalexin] 500 mg PO QID #28 cap - Follow Up Plan Condition: GOOD Disposition: TRANSF TO SNF Instructions: Heart Failure (DC), Pneumococcal Vaccine for Adults (DC), Cellulitis (GEN), Basic Carbohydrate Counting (DC), Dizziness (GEN), Fall Prevention (DC) Additional Instructions: Patient is medically stable for discharge. Please follow up with your primary medical doctor within 1 week. Please follow up with Dr. Nieto within 1 week for the biopsy results. Please take Protonix 40mg daily. Thank you for allowing us to take part in your care. Referrals: Xavier Taylor MD [Primary Care Provider] - Denilson Nieto MD [Staff Provider] - <Aj Barnett - Last Filed: 11/08/16 11:17> Provider - Provider Date of Admission: 10/31/16 12:00 Attending physician: Aj Barnett MD Primary care physician: Xavier Taylor MD Hospital Course - Lab Results Lab Results: Most Recent Lab Values WBC 5.8 10^3/ul (4.5-11.0) 11/04/16 06:55 RBC 4.30 10^6/uL (3.5-6.1) 11/04/16 06:55 Hgb 12.3 gm/dL (12.0-16.0) 11/04/16 06:55 Hct 37.4 % (36.0-48.0) 11/04/16 06:55 MCV 87.0 fL (80.0-105.0) 11/04/16 06:55 MCH 28.6 pg (25.0-35.0) 11/04/16 06:55 MCHC 32.9 g/dl (31.0-37.0) 11/04/16 06:55 RDW 15.8 % (11.5-14.5) H 11/04/16 06:55 Plt Count 330 10^3/uL (120.0-450.0) 11/04/16 06:55 MPV 10.7 fl (7.0-11.0) 11/04/16 06:55 Gran % 72.8 % (50.0-68.0) H 11/04/16 06:55 Lymph % (Auto) 19.6 % (22.0-35.0) L 11/04/16 06:55 [place] % (Auto) 6.3 % (1.0-6.0) H 11/04/16 06:55 Eos % (Auto) 1.0 % (1.5-5.0) L 11/04/16 06:55 Baso % (Auto) 0.3 % (0.0-3.0) 11/04/16 06:55 Gran # 4.19 (1.4-6.5) 11/04/16 06:55 Lymph # 1.1 (1.2-3.4) L 11/04/16 06:55 [place] # 0.4 (0.1-0.6) 11/04/16 06:55 Eos # 0.1 (0.0-0.7) 11/04/16 06:55 Baso # 0.02 K/mm3 (0.0-2.0) 11/04/16 06:55 Sodium 136 mmol/L (132-148) 11/04/16 06:55 Potassium 3.5 mmol/L (3.6-5.0) L 11/04/16 06:55 Chloride 105 mmol/L (95-110) 11/04/16 06:55 Carbon Dioxide 28 mmol/L (21-33) 11/04/16 06:55 Anion Gap 7 (10-20) L 11/04/16 06:55 BUN 13 mg/dL (7-21) 11/04/16 06:55 Creatinine 0.8 mg/dL (0.5-1.4) 11/04/16 06:55 Est GFR ( Amer) > 60 11/04/16 06:55 Est GFR (Non-Af Amer) > 60 11/04/16 06:55 POC Glucose (mg/dL) 227 mg/dL (65-110) H 11/01/16 21:18 Random Glucose 261 mg/dL (70-110) H 11/04/16 06:55 Hemoglobin A1c 9.0 % (4.2-6.5) H 10/31/16 06:30 Calcium 8.0 mg/dL (8.4-10.5) L 11/04/16 06:55 Phosphorus 4.3 mg/dL (2.5-4.5) 10/31/16 06:30 Magnesium 2.2 mg/dL (1.7-2.2) 10/31/16 06:30 Total Bilirubin 0.2 mg/dL (0.2-1.3) 11/04/16 06:55 AST 26 U/L (15-39) 11/04/16 06:55 ALT 44 U/L (7-56) 11/04/16 06:55 Alkaline Phosphatase 134 U/L (38-133) H 11/04/16 06:55 Total Creatine Kinase 80 U/L (35-230) 10/30/16 13:00 Troponin I 0.03 ng/mL D 10/31/16 22:30 NT-Pro-B Natriuret Pep 3000 pg/mL (0-450) H 10/31/16 06:30 Total Protein 5.0 g/dL (5.8-8.3) L 11/04/16 06:55 Albumin 2.6 g/dL (3.0-4.8) L 11/04/16 06:55 Globulin 2.5 gm/dL 11/04/16 06:55 Albumin/Globulin Ratio 1.0 (1.1-1.8) L 11/04/16 06:55 Lipase 71 U/L (23-300) 10/30/16 13:00 Urine Color Yellow (YELLOW) 10/30/16 20:02 Urine Appearance Cloudy (CLEAR) 10/30/16 20:02 Urine pH 7.0 (4.7-8.0) 10/30/16 20:02 Ur Specific [place] 1.020 (1.005-1.035) 10/30/16 20:02 Urine Protein >=300 mg/dL (<30 mg/dL) H 10/30/16 20:02 Urine Glucose (UA) Negative mg/dL (NEGATIVE) 10/30/16 20:02 Urine Ketones Negative mg/dL (NEGATIVE) 10/30/16 20:02 Urine Blood Large (NEGATIVE) H 10/30/16 20:02 Urine Nitrate Negative (NEGATIVE) 10/30/16 20:02 Urine Bilirubin Negative (NEGATIVE) 10/30/16 20:02 Urine Urobilinogen 0.2 E.U./dL (<1 E.U./dL) 10/30/16 20:02 Ur Leukocyte Esterase Small [place]/uL (NEGATIVE) H 10/30/16 20:02 Urine RBC 2 - 5 /hpf (0-2) 10/30/16 20:02 Urine WBC 5 - 10 /hpf (0-6) 10/30/16 20:02 Ur Epithelial Cells 0 - 2 /hpf (0-5) 10/30/16 20:02 Urine Bacteria Many (NEG) 10/30/16 20:02 Attending/Attestation - Attestation I have personally seen and examined this patient.: Yes I have fully participated in the care of the patient.: Yes I have reviewed all pertinent clinical information, including history, physical exam and plan: Yes Notes (Text): I have seen and examined patient at bedside with the resident. Agree with the note above with the following additions/ exceptions: This is 76 year old female with history of anxiety, HTN, CAD s/p stents and CABG, IDDM, COPD, dyslipidemia who presented with nausea, vomiting for a day and found to have UTI. Urine culture is growing klebsiella. Also has cellulitis of bilateral LE. Currently on rocephin. Will discharge her on keflex. She continues to complain of headache. Fioricet and gabapentin started. CT head showed chronic ischemic changes. CT Abd/Pelvis IV contrast showed Fluid and food debris in a moderately dilated stomach and distal esophagus. EGD was done to rule out gastric outlet obstruction which showed grade 1 esophagitis. Recommended protonix. Path results pending. Psych consult appreciated. PT recommended subacute rehab. Discussed with patient and her son. [place] [facility] Aj Barnett
[2016-11-04] MEDS: Insulin Detemir 100 units/ml Vial (Levemir) SC SCH (10:41)
[2016-11-04] MEDS: Tiotropium 18 mcg Cap For Inhalation IH SCH (10:42)
[2016-11-04] MEDS: Aspirin 325 mg EC Tablets PO SCH (10:49)
[2016-11-04 10:50] VITALS: BP 140/74; PULSE 72
--- NOTE | 2016-11-04 11:38 | PN ---
DATE: 11/04/2016 SUBJECTIVE: The patient is lying in bed, comfortable. She is tolerating solid foods without any dustin sea or vomiting. PHYSICAL EXAMINATION: VITAL SIGNS: Reveal temperature of 98, blood pressure 140/74, heart rate is 72. ABDOMEN: Obese, soft, nontender. LABORATORY DATA: Reveal hemoglobin 12.3, blood sugar 261, potassium 3.5. IMPRESSION: A 76-year-old female with a history of nausea, vomiting and a CT scan showing a stomach filled with food and with food refluxing into the esophagus, with an upper endoscopy showing no evide nce of gastric outlet obstruction and erosive gastritis. The patient is tolerating solid foods. RECOMMENDATIONS: 1. Continue PPI. 2. The patient is to be evaluated for subacute rehab. Denilson Nieto MD cc: [id number] TT: 11/04/2016 11:37:49 Confirmation # [id number] Dictation # [id number] mn
[2016-11-04] MEDS ORDERED: Insulin Detemir 100 units/ml Vial (Levemir) SC SCH (11:44)
[2016-11-04] MEDS ORDERED: Insulin Detemir 100 units/ml Vial (Levemir) SC ONE (11:45)
--- NOTE | 2016-11-04 21:16 | PN ---
DATE: 11/04/2016 Shortly, the patient is a 76-year-old female with history of depression, anxiety, multiple medical issues. The patient was admitted on the medical side for evaluation of severe headache accom panied by nausea and vomiting. Psych consult was called for evaluation of depressive symptoms, as we ll as anxiety. The patient initially was seen by Dr. Andrade. This appeals writer is following up. The patie nt was seen today with medical students. The patient presented to be less depressed. The patient de nied any thoughts of killing herself or others. The patient reported that her son is supportive. Th e patient denied hearing voices, denied seeing things, denied paranoid ideations. VITAL SIGNS: This appeals writer reviewed vital signs. Vital signs seem to be stable. MEDICATIONS: Reviewed. The patient is on Tylenol, 25 mg p.o. q. 8 hours as needed, Brovana, a spirin, Lipitor, Pulmicort, Coreg, Keflex, Phenergan, Lasix, Neurontin, heparin, Levemir, Zestril, An tivert, Zofran and Protonix. LABORATORY DATA: Reviewed. Seem to be normal. The most recent was from today, potassium 3.5. The rest AST and ALT trending down. Urinalysis showed some urinary tract infection. The patient was see n by medical team, as well as infectious disease team. MENTAL STATUS EXAMINATION: The patient presented to be alert. The patient is visually impaired. Sp eech was underproductive, low volume. Mood described "I feel better." Affect was constricted. Thou ght process seems to be coherent and goal directed. Thought content: The patient denied visual, aud itory, tactile hallucinations. Denied paranoid ideation. The patient does not present to be psychot ic. Insight and judgment are fair. Impulses are well controlled. IMPRESSION: Rule out adjustment disorder, rule out mood disorder due to general medical condition. Dr. Andrade had the impression that most likely the patient was delirious, possible mild dementia. PLAN: Continue current management. The patient does not present to be depressed or psychotic. The patient would benefit from outpatient therapy, as well as socializing with people her age, some [employer] centers. Overall, the patient improved. This appeals writer will sign off. Thank you very much for letting me participate in the care of your patient. Mahnaz Gibson MD cc: [phone] TT: 11/04/2016 21:16:28 Confirmation # [id number] Dictation # [id number] mn
--- NOTE | 2016-11-05 10:20 | CP.PCM.PCO ---
Physician Communication Note - Physician Communication Note Physician Communication Note: pt was d/c yesterday
== END 2016-11-04 17:42 | DRG 603 ==
LOC: ED 13:02 → ERH 19:28 → 2RNO 22:35 → OBSVTOIN 10-31 12:00 → 5RNO 11-01 22:00
PROVIDERS: ADMIT Internal Medicine; ATTEND Hospitalist
PROC: 3E0F7GC Introduction of Other Therapeutic Substance into Respiratory Tract, Via Natural or Artificial Opening (ICD-10-PCS; 2016-10-31)
PROC: 0DB68ZX Excision of Stomach, Via Natural or Artificial Opening Endoscopic, Diagnostic (ICD-10-PCS; principal; 2016-11-03 11:00)
DX: L03.116 Cellulitis of left lower limb (principal); L03.115 Cellulitis of right lower limb; I87.2 Venous insufficiency (chronic) (peripheral); R51 Headache; N39.0 Urinary tract infection, site not specified; B96.1 Klebsiella pneumoniae [K. pneumoniae] as the cause of diseases classified elsewhere; I11.0 Hypertensive heart disease with heart failure; I50.9 Heart failure, unspecified; E11.65 Type 2 diabetes mellitus with hyperglycemia; E11.40 Type 2 diabetes mellitus with diabetic neuropathy, unspecified; I25.10 Atherosclerotic heart disease of native coronary artery without angina pectoris; J44.9 Chronic obstructive pulmonary disease, unspecified; E78.5 Hyperlipidemia, unspecified; F43.22 Adjustment disorder with anxiety; K20.9 Esophagitis, unspecified; K29.70 Gastritis, unspecified, without bleeding; E87.6 Hypokalemia; F32.9 Major depressive disorder, single episode, unspecified; Z79.4 Long term (current) use of insulin; Z95.5 Presence of coronary angioplasty implant and graft; Z90.710 Acquired absence of both cervix and uterus; Z95.1 Presence of aortocoronary bypass graft; Z89.421 Acquired absence of other right toe(s); Z87.891 Personal history of nicotine dependence; Z83.3 Family history of diabetes mellitus; Z90.49 Acquired absence of other specified parts of digestive tract